=== PATIENT | male | born 1975 | race Caucasian/White ===

== ENCOUNTER 2023-08-09 22:57 | Emergency (ER) | payer OTHER, SELFPAY ==
[2023-08-09 23:00] VITALS: BP 133/74; PULSE 71; TEMP 36.7; O2SAT 98; BMI 36.4
--- NOTE | 2023-08-09 23:19 | ED.EXTPRO1 ---
HPI - Extremity Problem General Chief complaint: Extremity Problem, Nontraumatic Stated complaint: RT LEG SWELLING Time Seen by Provider: 08/09/23 23:13 Source: patient Mode of arrival: walk-in Limitations: no limitations History of Present Illness HPI Narrative: 47-year-old male presents to the emergency department for a chief complaint of a painful swollen red area on his right leg. He is worried he has a blood clot. He has never had 1. This has been there for a few days and it was not precipitated by any trauma no chest pain or shortness of breath. Related Data Home Medications ?Medication ?Instructions ?Recorded ?Confirmed omeprazole 40 mg capsule,delayed mg 08/09/23 release oxycodone-acetaminophen 5 mg-325 tab 08/09/23 mg tablet prednisone 10 mg tablet mg 08/09/23 Allergies Allergy/AdvReac Type Severity Reaction Status Date / Time No Known Drug Allergies Allergy Verified 08/09/23 23:03 Review of Systems ROS Narrative A ten point review of systems is negative except as noted above. Exam Narrative Exam Narrative: Nurses note and vital signs reviewed and patient is not hypoxic. General: The patient appears well and in no apparent distress. Patient is resting comfortably on cart. Skin: Warm, dry, no pallor noted. There is no rash noted. Head: Normocephalic, atraumatic Eye: Normal conjunctiva, no drainage Ears, Nose, Mouth, and Throat: oral mucosa is moist. Nares patent. Cardiovascular: Regular Rate and Rhythm Respiratory: Patient is in no distress, no accessory muscle use, lungs are clear to auscultation, no wheezing, rales or rhonchi Back: non-tender GI: Soft and nontender Musculoskeletal: The patient has no evidence of calf tenderness, no pitting edema, symmetrical pulses noted bilaterally. He has numerous dilated veins particularly on the left inner thigh. He has an area of mild erythema and linear induration on the right leg that is goes from just below the knee to just above the knee laterally. Neurological: Awake and alert Psychiatric: Cooperative Constitutional Vital Signs, click to edit/add: Last Vital Signs Temp 98.1 F 08/09/23 23:00 Pulse 71 08/09/23 23:00 Resp 16 08/09/23 23:00 BP 133/74 08/09/23 23:00 Pulse Ox 98 08/09/23 23:00 O2 Del Method Room Air 08/09/23 23:00 Course Vital Signs Vital signs: Vital Signs Temperature 98.1 F 08/09/23 23:00 Pulse Rate 71 08/09/23 23:00 Respiratory Rate 16 08/09/23 23:00 Blood Pressure 133/74 08/09/23 23:00 Pulse Oximetry 98 08/09/23 23:00 Oxygen Delivery Method Room Air 08/09/23 23:00 Temperature 98.1 F 08/09/23 23:00 Pulse Rate 71 08/09/23 23:00 Respiratory Rate 16 08/09/23 23:00 Blood Pressure 133/74 08/09/23 23:00 Pulse Oximetry 98 08/09/23 23:00 Oxygen Delivery Method Room Air 08/09/23 23:00 MDM - Extremity (Nontraumatic) MDM Narrative Medical decision making narrative: D-dimer is just above the upper limit of normal and I do not feel that a shot of Lovenox at this point is required. We will bring him back in a few hours in the morning for an ultrasound of his leg to rule out DVT. I suspect that this is likely superficial thrombophlebitis. Treatment diagnosis and follow-up were discussed with the patient. Differential Diagnosis Differential diagnosis: Likely other (Superficial thrombophlebitis, DVT) Lab Data Attestation: I reviewed the patient's lab results. Labs: Lab Results 08/09/23 Range/Units 23:27 D-Dimer 0.68 H* (<=0.59) mg/L FEU Discharge Plan Discharge Stand Alone Forms: Portal Instructions Chief Complaint: Extremity Problem, Nontraumatic Clinical Impression: Right leg pain Patient Disposition: Home, Self-Care Time of Disposition Decision: 23:52 Condition: Good Mode of Transportation: Private Vehicle Prescriptions / Home Meds: No Action prednisone 10 mg tablet omeprazole 40 mg capsule,delayed release(DR/EC) oxycodone-acetaminophen 5-325 mg tablet Print Language: Norwegian Instructions: Leg Pain (ED) Additional Instructions: Outpatient ultrasound in the morning at 8 AM. Bring the written prescription with you. Referrals: Miguel Hester MD [Primary Care Provider] - 1 week
[2023-08-09 23:48] LABS: D Dimer 0.68 mg/L FEU (<=0.59)
== END 2023-08-10 00:09 | disposition home or self-care (01) ==
PROVIDERS: Emergency Provider Emergency Medicine; PCP Family Medicine
DX: M79.604 Pain in right leg (principal)
CPT/HCPCS: 36415; 85378; 99283

== ENCOUNTER 2023-08-10 08:01 | Outpatient (OUT) | payer OTHER, SELFPAY ==
--- NOTE | 2023-08-10 | US_ITS ---
[address] [address] Patient Name: SELIN SOLIMAN MRN: [id number] date: 1975 Sex: M Assigned Patient Location: [facility] Current Patient Location: .[facility] Accession/Order Number: [id number] Exam Date: 08/10/2023 08:08 Report Date: 08/10/2023 09:04 At the request of: TAY ELY Procedure: US venous doppler LE RT EXAM: US venous doppler LE RT HISTORY: Right leg pain and swelling COMPARISON: None. TECHNIQUE: Grayscale, color and Doppler FINDINGS: Region: Right leg Thrombus: Extensive echogenic thrombus identified in superficial varicose veins extending from the mid thigh to the proximal calf Flow: Absent flow corresponding to thrombus Augmentation: Normal augmentation of the deep veins Compressibility: Noncompressibility corresponding to thrombus These findings discussed with Dr. Joey France by telephone 9:04 AM US/US venous doppler LE RT IMPRESSION: Extensive superficial vein thrombus in varicose veins from the mid thigh to the proximal calf No deep vein thrombus Electronically authenticated by: DANN GERBER Date: 08/10/2023 09:04
== END 2023-08-10 08:02 | disposition home or self-care (01) ==
LOC: RAD 08:01
PROVIDERS: PCP Family Medicine; Visit Provider Emergency Medicine
DX: M79.89 Other specified soft tissue disorders (principal); M79.604 Pain in right leg; I82.811 Embolism and thrombosis of superficial veins of right lower extremity
CPT/HCPCS: 93971

== ENCOUNTER 2023-08-10 08:48 | Emergency (ER) | payer OTHER, SELFPAY ==
[2023-08-10 08:51] VITALS: BP 132/76; PULSE 67; TEMP 36.7; O2SAT 97; BMI 36.0
--- NOTE | 2023-08-10 09:25 | ED.GENADUL1 ---
HPI HPI - General Adult General Chief complaint: Extremity Problem, Nontraumatic Stated complaint: LEG PAIN/ABNORMAL ULTRASOUND Time Seen by Provider: 08/10/23 08:55 Source: patient Mode of arrival: walk-in History of Present Illness HPI narrative: Patient is a 47-year-old male who is presenting to the ER today after he had an outpatient ultrasound this morning. Patient was seen in the ER last evening. Patient had a ultrasound this morning. The scrub technician called and spoke to the medical policy specialist and Dr. Hester office. Patient was recommended to come to the ER by the medical policy specialist without speaking to PCP, he was not in the office at the time. Patient has history of extensive varicose veins. Patient does have some mild redness and erythema to the lateral aspect of his right lower thigh and right upper lateral leg. Patient has no chest pain or shortness of breath. No fever or chills. No other acute complaints. Patient was told to come to the ER. Patient has no history of DVT. All systems are negative except as noted/marked. All systems reviewed and otherwise negative. Nurses note and vital signs reviewed and patient is not hypoxic. General: The patient appears well and in no apparent distress. Patient is resting comfortably on cart. Patient is not toxic, lethargic, or listless Skin: Warm, dry, no pallor noted. There is no rash noted. No petechiae, purpura. Patient has minimal erythema to the distal right lateral thigh and also the proximal right lower leg just distal to the knee, no palpable hematomas. No signs of cellulitis. The area is continuous, not circumferential. Patient has no pain to palpation to the posterior aspect of the right posterior thigh, popliteal fossa, and calf. Patient has multiple varicose veins to both legs that is longstanding and chronic. Head: Normocephalic, atraumatic Eye: Normal conjunctiva, no drainage, EOMI. PERRL Ears, Nose, Mouth, and Throat: oral mucosa is moist. Nares patent. Mouth without vesicles. Cardiovascular: Regular Rate and Rhythm, no murmur, gallop, rub Respiratory: Patient is in no distress, no accessory muscle use, lungs are clear to auscultation, no wheezing, rales or rhonchi Back: non-tender, GI: no tenderness Musculoskeletal: Patient has full range of motion of all of the extremities, no motor, sensory, or focal neurological deficits. See skin assessment. Neurological: A&O x4, normal speech Psychiatric: Cooperative Related Data Home Medications ?Medication ?Instructions ?Recorded ?Confirmed omeprazole 40 mg capsule,delayed mg 08/09/23 release oxycodone-acetaminophen 5 mg-325 tab 08/09/23 mg tablet prednisone 10 mg tablet mg 08/09/23 Previous Rx's ?Medication ?Instructions ?Recorded apixaban 5 mg (74 tabs) tablets in 5 mg PO Q12H #74 ea 08/10/23 a dose pack (Eliquis DVT-PE Treat 30D Start) naproxen 500 mg tablet (Naprosyn) 500 mg PO BID PRN pain #20 tabs 08/10/23 Allergies Allergy/AdvReac Type Severity Reaction Status Date / Time No Known Drug Allergies Allergy Verified 08/09/23 23:03 Opioid HPI Opioid Management Most Recent Opioid Data: No Data to Display Exam Constitutional Vital Signs, click to edit/add: Last Vital Signs Temp 98.1 F 08/10/23 08:51 Pulse 67 08/10/23 08:51 Resp 18 08/10/23 08:51 BP 132/76 08/10/23 08:51 Pulse Ox 97 08/10/23 08:51 Course Vital Signs Vital signs: Vital Signs Temperature 98.1 F 08/10/23 08:51 Pulse Rate 67 08/10/23 08:51 Respiratory Rate 18 08/10/23 08:51 Blood Pressure 132/76 08/10/23 08:51 Pulse Oximetry 97 08/10/23 08:51 Temperature 98.1 F 08/10/23 08:51 Pulse Rate 67 08/10/23 08:51 Respiratory Rate 18 08/10/23 08:51 Blood Pressure 132/76 08/10/23 08:51 Pulse Oximetry 97 08/10/23 08:51 Medical Decision Making MDM Narrative Medical decision making narrative: I have spoken to the radiologist Dr. Azul, and he stated the new literature suggest that with the extensive nature of the superficial varicose veins and superficial vein thrombophlebitis, it should be treated with anticoagulants similar to DVT now. I then spoke to Dr. Hester, and he is aware of the ultrasound finding. He recommended to place patient on Eliquis and Naprosyn. Patient will follow-up with Dr. Hester and also has been referred to the vein clinic as well for Discharge Plan Discharge Stand Alone Forms: Work/School Release, Portal Instructions Chief Complaint: Extremity Problem, Nontraumatic Clinical Impression: Thrombophlebitis of superficial veins of right lower extremity Patient Disposition: Home, Self-Care Time of Disposition Decision: 09:19 Condition: Fair Prescriptions / Home Meds: New Eliquis DVT-PE Treat 30D Start 5 mg (74 tabs) tablets,dose pack 5 mg PO Q12H Qty: 74 0RF Rx Instructions: please dispense generic and not the expensive starter pack if not covered by insurance naproxen [Naprosyn] 500 mg tablet 500 mg PO BID PRN (Reason: pain) Qty: 20 0RF No Action prednisone 10 mg tablet omeprazole 40 mg capsule,delayed release(DR/EC) oxycodone-acetaminophen 5-325 mg tablet Print Language: [place] Instructions: Superficial Thrombophlebitis (ED), Phlebitis (ED), Vein Stripping (DC) Additional Instructions: Start taking Eliquis. Start using daily anti-inflammatories as prescribed as well to help with pain and inflammation. Follow-up with PCP, also follow-up with the [facility] vein [facility] body clinic for further treatment You have been given information about the [facility] vein and body clinic as well. Call to make an outpatient appointment Referrals: Miguel Hester MD [Primary Care Provider] - 1 week
== END 2023-08-10 09:47 | disposition home or self-care (01) ==
PROVIDERS: Emergency Provider Emergency Medicine; PCP Family Medicine
DX: I82.811 Embolism and thrombosis of superficial veins of right lower extremity (principal); M79.604 Pain in right leg; L53.9 Erythematous condition, unspecified
CPT/HCPCS: 93971; 99283

== ENCOUNTER 2024-06-19 15:43 | Outpatient (OUT) | payer OTHER, SELFPAY ==
[2024-06-19 15:54] LABS: Basophils Percent Auto 0.4 % (0.2-2.0); Eosinophils Absolute Auto 0.1 10^3/uL (0.0-0.7); Hematocrit 43.1 % (42.0-54.0); Hemoglobin 14.4 g/dL (14.0-18.0); Immature Granulocytes Abs Auto 0.02 10^3/uL (0.00-0.03); Immature Granulocytes Pct Auto 0.3 % (0.0-0.5); Lymphocytes Absolute Auto 1.9 10^3/uL (1.2-3.8); Mean Corpuscular HGB Conc 33.4 g/dL (29.9-35.2); Mean Corpuscular Hemoglobin 29.6 pg (25.9-34.0); Mean Corpuscular Volume 88.7 fL (80.0-94.0); Mean Platelet Volume 8.9 fL (9.5-13.5); Monocytes Absolute Auto 0.7 10^3/uL (0.3-0.8); Neutrophils Absolute Auto 4.2 10^3/uL (1.4-6.5); Neutrophils Percent Auto 60.3 % (43.0-75.0); Platelet Count 264 10^3/uL (150-450); Red Blood Count 4.86 10^6/uL (4.70-6.10); Red Cell Distribution Width 13.2 % (11.0-15.0)
[2024-06-19 16:17] LABS: Estimated Average Glucose 128 mg/dL; Glycohemoglobin A1C 6.1 % (4.5-6.2)
[2024-06-19 16:27] LABS: Alanine Aminotransferase 48 U/L (16-63); Albumin Globulin Ratio 1.1; Albumin Level 3.7 g/dL (3.4-5.0); Alkaline Phosphatase 64 U/L (46-116); Anion Gap 7.9; Aspartate Amino Transferase 20 U/L (15-37); BUN Creatinine Ratio 15.4; Bilirubin Direct 0.1 mg/dL (0.0-0.2); Bilirubin Total 0.3 mg/dL (0.2-1.0); Calcium 9.3 mg/dL (8.5-10.1); Carbon Dioxide 32.1 mmol/L (21.0-32.0); Chloride 101 mmol/L (98-107); Chol HDL Ratio 6.5; Cholesterol 215 mg/dL (<=200); Estimated GFR (African America >60 (>=60 mL/min/1.73m^2); Estimated GFR (Non-African Ame >60 (>=60 mL/min/1.73m^2); Globulin 3.4 g/dL; Glucose 109 mg/dL (74-106); HDL Cholesterol 33 mg/dL (40-60); Sodium 137 mmol/L (136-145); Total Protein 7.1 g/dL (6.4-8.2); Triglycerides 302 mg/dL (<=150); VLDL CHOLESTEROL 60.4 mg/dL
[2024-06-19 17:50] LABS: Prostate Specific Antigen Scrn 0.45 ng/mL (<=4.00)
== END 2024-06-19 15:44 | disposition home or self-care (01) ==
LOC: LAB 15:44
PROVIDERS: PCP Family Medicine; Visit Provider Family Medicine
DX: Z00.00 Encounter for general adult medical examination without abnormal findings (principal)
CPT/HCPCS: 36415; 80048; 80061; 80076; 83036; 84443; 85025; G0103

== ENCOUNTER 2024-11-14 17:48 | Emergency (ER) | payer OTHER, SELFPAY ==
[2024-11-14] VITALS (9 sets, daily range): BP systolic 123–135; BP diastolic 67–84; PULSE 83–96; TEMP 36.9; O2SAT 94–96; BMI 39.1
--- NOTE | 2024-11-14 18:04 | ECG_ITS ---
The [facility] Test Date: 2024-11-14 Pat Name: SELIN SOLIMAN Department: Room: - Gender: Male [employer] Machine Operator: : 1975 Requested By: [id number] Order Number: [id number] Reading MD: TASNEEM ACOSTA M.D. Measurements Intervals [place] Rate: 92 P: 51 WA: 160 QRS: 12 QRSD: 82 T: 44 QT: 364 QTc: 413 Interpretive Statements 1100 Sinus rhythm 9110 normal ECG Compared to ECG 03/08/2018 05:44:35 No significant changes Electronically Signed On 11-14-2024 18:49:04 EDT by TASNEEM ACOSTA M.D.
--- NOTE | 2024-11-14 18:04 | CT_ITS ---
The [address] [address] Patient Name: SELIN SOLIMAN MRN: [id number] date: 1975 Sex: M Assigned Patient Location: ED.MAIN Current Patient Location: ED.MAIN Accession/Order Number: [id number] Exam Date: 11/14/2024 18:26 Report Date: 11/14/2024 18:58 At the request of: ZAINAB HOLCOMB MD Procedure: CT abdomen pelvis wo con CT Abdomen and Pelvis withoutcontrast TECHNIQUE: Axial imaging with 2-D reconstruction. The CT exam was performed using one or more the following dose reduction techniques: Automated exposure control, adjustment of the MA and/or Kv according to patient size, or use of the iterative reconstruction technique. COMPARISON: None History: Back pain with radiation into the abdomen LIMITATIONS: None LOWER THORAX Unremarkable LIVER: Fatty hepatomegaly. 2.9 cm left hepatic lesion. GALLBLADDER: No gallbladder abnormality identified. BILE DUCTS: No dilatation SPLEEN: Unremarkable PANCREAS: Unremarkable ADRENAL GLANDS: Unremarkable KIDNEYS:Unremarkable AORTA: No abdominal aortic aneurysm identified. RETROPERITONEUM: No significant retroperitoneal abnormalities identified. MESENTERY:Unremarkable STOMACH:Unremarkable SMALL BOWEL: The small bowel loops are nondistended. APPENDIX: The appendix is normal. COLON: Unremarkable URINARY BLADDER: Urinary bladder is unremarkable. REPRODUCTIVE SYSTEM: Reproductive structures are unremarkable. PNEUMOPERITONEUM: None PERITONEAL FLUID:None BONY STRUCTURES: Unremarkable ABDOMINAL WALL: Unremarkable CT/CT abdomen pelvis wo con IMPRESSION: No acute inflammatory changes. Fatty hepatomegaly. 2.8 cm left hepatic lesion. May be further assessed with liver MRI with and without contrast Impression dictated by: Osman Gillis M.D. 11/14/2024 6:58 PM Dictation Location: [facility] Real-Time Electronically authenticated by: [id number] Y Date: 11/14/2024 18:58
--- OUTSIDE RECORDS SUMMARY | 2024-11-14 18:10 | XMS_ITS | CCD ---
Author Organization [facility] Care Team Providers Care Tube Worker Name Role Phone Petr Chung Unavailable Unavailable DR MIGUEL MAURER Admitting Unavailable DR MIGUEL MAURER Attending Unavailable ERASTO, DR MIGUEL Tubbs Primary Care Unavailable DR MIGUEL MAURER Consulting Unavailable Miguel Maurer MD Primary Care Provider Miguel Maurer MD Primary Care Provider Miguel Maurer MD Unavailable Hamlet Cyr Jr Attending Unavailable Hamlet Cyr Jr Admitting Unavailable Miguel Maurer Primary Care Unavailable MIGUEL MAURER Attending Unavailable MIGUEL MAURER Attending Unavailable Medications Current Medications Medication Drug Class(es) Dates Sig (Normalized) Sig (Original) acetaminophen 325 mg / oxyCODONE hydrochloride 5 mg oral tablet (20 sources) Opioid Agonist Start: 11-12-2023 End: 10-29-2024 take 1 tablet by mouth four times daily as needed for pain oxyCODONE-acetaminophe n (Percocet) 5-325 MG tablet Indications: Spondylolisthesis of lumbar region Take 1 tablet by mouth 4 (four) times a day as needed for moderate pain or severe pain 120 tablet 09/29/2024 10/29/2024 Active Start: 09-05-2023 End: 11-10-2023 take 1 tablet by mouth four times daily as needed for pain oxyCODONE-acetaminophen (Percocet) 5-325 MG tablet Indications: Spondylolisthesis of lumbar region Take 1 tablet by mouth 4 (four) times a day as needed for moderate pain or severe pain 120 tablet 10/08/2023 11/10/2023 Discontinued (Reorder) Start: 02-21-2023 End: 03-26-2023 take 1 tablet by mouth four times daily as needed for pain oxyCODONE-acetaminophen (Percocet) 5-325 MG tablet Indications: Spondylolisthesis of lumbar region Take 1 tablet by mouth 4 (four) times a day as needed for moderate pain or severe pain 120 tablet 0 03/26/2023 Active 12 hr buPROPion hydrochloride 150 mg extended release oral tablet (9 sources) Aminoketone Start: 06-16-2024 End: 07-08-2024 take 1 tablet by mouth every twelve hours at bedtime buPROPion SR (Wellbutrin SR) 150 MG 12 hr tablet Indications: Smoker TAKE 1 TABLET BY MOUTH IN THE MORNING AND BEFORE BEDTIME, DO NOT CRUSH, CHEW, OR SPLIT 180 tablet 3 07/08/2024 Active 24 hr nicotine 0.875 mg/hr transdermal system (8 sources) Cholinergic Nicotinic Agonist Start: 06-16-2024 nicotine (Nicoderm, Step 1) 21 MG/24HR patch Indications: Smoker Place 1 patch over 24 hours on the skin 1 (one) time each day at the same time 30 patch 1 06/16/2024 Active omeprazole 40 mg delayed release oral capsule (20 sources) Proton Pump Inhibitor Start: 11-15-2023 End: 05-14-2024 take 1 capsule by mouth before mealtime omeprazole (PriLOSEC) [address] capsule Indications: Gastroesophageal reflux disease without esophagitis TAKE 1 CAPSULE BY MOUTH IN THE MORNING BEFORE MEALS, DO NOT CRUSH OR CHEW 90 capsule 1 05/14/2024 Active Start: 06-18-2023 take 1 capsule by mo uth before mealtime omeprazole (PriLOSEC) [address] capsule Indications: Gastroesophageal reflux disease without esophagitis Take 1 capsule (40 mg) by mouth in the morning. Take before meals. Do not crush or chew.. 30 capsule 5 06/18/2023 Active predniSONE 10 mg oral tablet (6 sources) Start: 07-30-2023 End: 12-17-2023 take 6 tablets by mouth once daily, then take 4 tablets by mouth once daily, then take 2 tablets by mouth once daily, then take 1 tablet by mouth once daily predniSONE (Deltasone) 10 MG tablet Indications: Spondylolisthesis of lumbar region 6 PO daily x 3 days, 4 PO daily x 3 days, 2 PO daily x 3 days, 1 PO daily x 3 days 39 tablet 07/30/2023 12/17/2023 Discontinued sildenafil 100 mg oral tablet (20 sources) Phosphodiesterase 5 Inhibitor Start: 08-07-2024 sildenafil (Viagra) 100 MG tablet Indications: Vasculogenic erectile dysfunction, unspecified vasculogenic erectile dysfunction type TAKE ONE TABLET BY MOUTH NEEDED 30 MINUTES PRIOR TO ANTICIPATED ACTIVITY 9 tablet 5 08/07/2024 Active Start: 06-05-2024 sildenafil (Vi agra) 100 MG tablet Indications: Vasculogenic erectile dysfunction, unspecified vasculogenic erectile dysfunction type TAKE ONE TABLET BY MOUTH NEEDED 30 MINUTES PRIOR TO ANTICIPATED ACTIVITY 9 tablet 5 06/05/2024 Active Start: 03-31-2024 sildenafil (Vi agra) 100 MG tablet Indications: Vasculogenic erectile dysfunction, unspecified vasculogenic erectile dysfunction type TAKE ONE TABLET BY MOUTH NEEDED 30 MINUTES PRIOR TO ANTICIPATED ACTIVITY 9 tablet 5 03/31/2024 Active Start: 01-14-2024 sildenafil (Vi agra) 100 MG tablet Indications: Vasculogenic erectile dysfunction, unspecified vasculogenic erectile dysfunction type TAKE ONE TABLET BY MOUTH NEEDED 30 MINUTES PRIOR TO ANTICIPATED ACTIVITY 9 tablet 5 01/14/2024 Active Start: 09-04-2023 End: 11-12-2023 sildenafil (Viagra) 100 MG t ablet Indications: Vasculogenic erectile dysfunction, unspecified vasculogenic erectile dysfunction type TAKE ONE TABLET BY MOUTH NEEDED 30 MINUTES PRIOR TO ANTICIPATED ACTIVITY 9 tablet 5 11/12/2023 Active Start: 02-15-2023 sildenafil (Vi agra) 100 MG tablet Indications: Vasculogenic erectile dysfunction, unspecified vasculogenic erectile dysfunction type TAKE ONE TABLET BY MOUTH NEEDED 30 MINUTES PRIOR TO ANTICIPATED ACTIVITY 9 tablet 5 02/15/2023 Active Problems Active Problems Problem Classification Problem Date Documented Date Episodic/Chronic Disorders of lipid metabolism (5 sources) Dyslipidemia; Translations: [Hyperlipidemia, unspecified] Onset: 06-23-2024 06-23-2024 Chronic Esophageal disorders (20 sources) Gastroesophageal reflux disease without esophagitis; Translations: [Gastro-esophageal reflux disease without esophagitis] Onset: 06-18-2023 06-18-2023 Chronic Other acquired deformities (20 sources) Lumbar spondylolisthesis; Translations: [Spondylolisthesis, lumbar region] Onset: 06-18-2023 03-26-2023 Episodic Other male genital disorders (20 sources) Secondary erectile dysfunction; Translations: [Male erectile dysfunction, unspecified] Onset: 06-18-2023 06-18-2023 Chronic Other male genital disorders (1 source) Vasculopathic erectile dysfunction; Translations: [Male erectile dysfunction, unspecified] 11-10-2023 Chronic Other nutritional; endocrine; and metabolic disorders (20 sources) Severe obesity; Translations: [Class 2 severe obesity due to excess calories with serious comorbidity and body mass index (BMI) of 39.0 to 39.9 in adult ([facility])] Onset: 12-17-2023 12-17-2023 Chronic Other screening for suspected conditions (not mental disorders or infectious disease) (2 sources) Patient encounter status; Translations: [Encounter for screening for malignant neoplasm of colon] 06-16-2024 Episodic Substance-related disorders (11 sources) Smoker; Translations: [Nicotine dependence, unspecified, uncomplicated] Onset: 06-16-2024 06-16-2024 Chronic Unclassified (2 sources) CONTACT W/AND (SUSP) EXPOS COVID-19; Translations: [CONTACT W/AND (SUSP) EXPOS COVID-19] Onset: 01-19-2021 Viral infection (1 source) COVID-19; Translations: [COVID-19] Onset: 01-19-2021 Past or Other Problems Problem Classification Problem Date Documented Da te Episodic/Chronic Diabetes mellitus without complication (5 sources) Prediabetes; Translations: [Prediabetes] Onset: 5 06-23-2024 Episodic Phlebitis; thrombophlebitis and thromboembolism (20 sources) Thrombophlebitis of superficial vein of right lower limb; Translations: [Phlebitis and thrombophlebitis of superficial vessels of right lower extremity] Onset: 4 06-18-2023 Episodic Spondylosis; intervertebral disc disorders; other back problems (20 sources) Lumbar disc prolapse with radiculopathy; Translations: [Intervertebral disc disorders with radiculopathy, lumbar region] Onset: 4 06-18-2023 Episodic Unclassified (1 source) CONTACT W/AND (SUSP) EXPOS COVID-19; Translations: [CONTACT W/AND (SUSP) EXPOS COVID-19] Onset: Varicose veins of lower extremity (20 sources) Varicose veins of lower extremity; Translations: [Varicose veins of bilateral lower extremities with pain] Onset: 4 06-18-2023 Episodic Results Test Name Value Interpretation Reference Range Facility ALL CBC WITH AUTO DIFFon BASOPHILS ABSOLUTE AUTO 0 [facility] Basophils/100 WBC (Bld) 0.4 % 0.2 - 2.0 % [facility] Eosinophils/100 WBC (Bld) 2 % 0.9 - 7.0 % [facility] Erythrocyte distribution width (RBC) [Ratio] 13.2 % 11.0 - 15.0 % [facility] Hematocrit (Bld) [Volume fraction] 43.1 % 42.0 - 54.0 % [facility] Hemoglobin (Bld) [Mass/Vol] 14.4 g/dL 14.0 - 18.0 g/dL [facility] IMMATURE GRANULOCYTES ABS AUTO 0.02 [facility] Immature granulocytes/100 WBC (Bld) 0.3 % 0.0 - 0.5 % [facility] Interpretation and review of laboratory results Abnormal [facility] LYMPHOCYTES ABSOLUTE AUTO 1.9 [facility] Lymphocytes/100 WBC (Bld) 27 % 20.5 - 60.0 % [facility] MCH (RBC) [Entitic mass] 29.6 pg 25.9 - 34.0 pg [facility] MCHC (RBC) [Mass/Vol] 33.4 g/dL 29.9 - 35.2 g/dL [facility] MCV (RBC) [Entitic vol] 88.7 fL 80.0 - 94.0 fL [facility] MONOCYTES ABSOLUTE AUTO 0.7 [facility] Monocytes/100 WBC (Bld) 10 % 1.7 - 12.0 % [facility] NEUTROPHILS ABSOLUTE AUTO 4.2 [facility] Neutrophils/100 WBC (Bld) 60.3 % 43.0 - 75.0 % [facility] Platelet mean volume (Bld) [Entitic vol] 8.9 fL Low 9.5 - 13.5 fL [facility] TBH EO # 0.1 [facility] TBH PLT 264 [facility] TB[facility] RBC 4.86 [facility] TB WBC 7 [facility] MLR HEMOGLOBIN A1Con 025 Glucose [Mass/Vol] 128 mg[facility] HbA1c (Bld) [Mass fraction] 6.1 % 4.5 - 6.2 % [facility] Comment on above: ADA RECOMMENDED LIMI T 4.0 - 6.0 ADA THERAPEUTIC TARGET < 7.0 ACTION SUGGESTED > 7.0 [facility] Covid-19 PCR (CVDTB)on SARS-CoV-2 (COVID-19) RNA ROSALIND+probe Ql (Unsp spec) Detected Critically abnormal NOT DETECTED [facility] Comment on above: Result Comment: This test is not yet approved or cleared by the [place] FDA. When there are no FDA-approved or cleared tests available, and other criteria are met, FDA can make tests available under an emergency access mechanism called an Emergency Use Authorization (EUA). The EUA for this test is supported by the Insurance Healthcare Consultant of Health and Human Service's (HHS's) declaration that circumstances exist to justify the emergency use of in vitro diagnostics for the detection and/or diagnosis of the virus that causes COVID-19. This EUA will remain in effect (meaning this test can be used) for the duration of the COVID-19 declaration justifying emergency of IVDs, unless it is terminated or revoked by FDA (after which the test may no longer be used). Performed By: #### [facility] #### [facility] [address] [place] [address] Dr. Lloyd López Vital Signs Date Time Vital Sign Value Performing Clinician Sascha bentley 06-16-2024 14:27040 Body height 172.7 cm Miguel Maurer MD Work Phone: [facility] 06-16-2024 14:27-0400 Body mass index (BMI) [Ratio] 41.05 kg/m2 Miguel Maurer MD Work Phone: [facility] 06-16-2024 14:27-040 Body temperature 97.81 [degF] Miguel Maurer MD Work Phone: [facility] 06-16-2024 14:27-0400 Body weight 122.47 kg Miguel Maurer MD Work Phone: [facility] 06-16-2024 14:27-0400 Diastolic blood pressure 78 mm[Hg] Miguel Maurer MD Work Phone: [facility] 06-16-2024 14:27-0400 Heart rate 79 /min Miguel Maurer MD Work Phone: [facility] 06-16-2024 14:27-0400 Respiratory rate 18 /min Miguel Maurer MD Work Phone: [facility] 06-16-2024 14:27-0400 SaO2% (BldA) [Mass fraction] 94 % Miguel Maurer MD Work Phone: [facility] 06-16-2024 14:27-0400 Systolic blood pressure 124 mm[Hg] Miguel Maurer MD Work Phone: [facility] 12-17-2023 13:14-0500 Body height 172.7 cm Miguel Maurer MD Work Phone: [facility] 12-17-2023 13:14-0500 Body mass index (BMI) [Ratio] 39.23 kg/m2 Miguel Maurer MD Work Phone: [facility] 12-17-2023 13:14-0500 Body temperature 97.5 [degF] Miguel Maurer MD Work Phone: [facility] 12-17-2023 13:14-0500 Body weight 117.03 kg Miguel Maurer MD Work Phone: [facility] 12-17-2023 13:14-0500 Diastolic blood pressure 64 mm[Hg] Miguel Maurer MD Work Phone: [facility] 12-17-2023 13:14-0500 Heart rate 71 /min Miguel Maurer MD Work Phone: [facility] 12-17-2023 13:14-0500 Respiratory rate 18 /min Miguel Maurer MD Work Phone: [facility] 12-17-2023 13:14-0500 SaO2% (BldA) [Mass fraction] 95 % Miguel Maurer MD Work Phone: [facility] 12-17-2023 13:14-0500 Systolic blood pressure 126 mm[Hg] Miguel Maurer MD Work Phone: [facility] Healthcare Encounters Encounter Date Encounter Type Care Provider Facility Start: 09-29-2024 End: 09-29-2024 Refill Miguel Maurer MD Work Phone: [facility] Comment on above: Spondylolisthesis of lumbar region Start: 08-28-2024 End: 08-28-2024 Refill Miguel Maurer MD Work Phone: [facility] Comment on above: Spondylolisthesis of lumbar region Start: 07-29-2024 End: 07-29-2024 Refill Miguel Maurer MD Work Phone: [facility] Comment on above: Spondylolisthesis of lumbar region Start: 07-08-2024 End: 07-08-2024 Refill Miguel Maurer MD Work Phone: [facility] Comment on above: Smoker Start: 06-26-2024 End: 06-26-2024 Refill Miguel Maurer MD Work Phone: [facility] Comment on above: Spondylolisthesis of lumbar region Start: 06-19-2024 End: 06-19-2024 [facility] Result Encounter Miguel Maurer MD Work Phone: [facility] External Department Unsolicited Start: 06-19-2024 End: 06-19-2024 [facility] Result Encounter Miguel Maurer MD Work Phone: [facility] External Department Unsolicited Start: 06-16-2024 End: 06-16-2024 Periodic preventive med est patient 40-64yrs Miguel Maurer MD Work Phone: [facility] Comment on above: Annual physical exam (Primary Dx); Colon cancer screening; Smoker; Thrombophlebitis of superficial veins of right lower extremity; Varicose veins of both lower extremities with pain; Class 3 severe obesity due to excess calories with serious comorbidity and body mass index (BMI) of 40.0 to 44.9 in adult; Gastro-esophageal reflux disease without esophagitis Start: 06-16-2024 End: 06-16-2024 ambulatory MIGUEL MAURER Not Available Start: 06-16-2024 End: 06-16-2024 Bamboo flowsheet Miguel Maurer MD Work Phone: [facility] Start: 06-16-2024 End: 06-16-2024 Bamboo flowsheet Miguel Maurer MD Work Phone: [facility] Start: 06-16-2024 End: 06-16-2024 Patient encounter procedure Miguel Maurer MD Work Phone: [facility] Start: 05-14-2024 End: 05-27-2024 Refill Miguel Maurer MD Work Phone: [facility] Comment on above: Gastroesophageal ref lux disease without esophagitis; Spondylolisthesis of lumbar region Start: 04-21-2024 End: 04-21-2024 Refill Miguel Maurer MD Work Phone: [facility] Comment on above: Spondylolisthesis of lumbar region Start: 03-19-2024 End: 03-19-2024 Refill Miguel Maurer MD Work Phone: [facility] Comment on above: Spondylolisthesis of lumbar region Start: 02-18-2024 End: 02-18-2024 Refill Miguel Maurer MD Work Phone: [facility] Comment on above: Spondylolisthesis of lumbar region Start: 01-18-2024 End: 01-18-2024 ambulatory Hamlet Cyr Jr Facility:[facility] Start: 01-16-2024 End: 01-16-2024 Refill Miguel Maurer MD Work Phone: [facility] Comment on above: Spondylolisthesis of lumbar region Start: 12-17-2023 End: 12-17-2023 Bamboo flowsheet Miguel Maurer MD Work Phone: [facility] Start: 12-17-2023 End: 12-17-2023 Bamboo flowsheet Miguel Maurer MD Work Phone: [facility] Start: 12-17-2023 End: 12-17-2023 ambulatory MIGUEL MAURER Not Available Start: 12-17-2023 End: 12-17-2023 Office outpatient visit 25 minutes Miguel Maurer MD Work Phone: [facility] Comment on above: Spondylolisthesis of lumbar region (Primary Dx); Gastroesophageal reflux disease without esophagitis; Thrombophlebitis of superficial veins of right lower extremity; Varicose veins of both lower extremities with pain; Class 2 severe obesity due to excess calories with serious comorbidity and body mass index (BMI) of 39.0 to 39.9 in adult ([facility]) Start: 11-12-2023 End: 11-12-2023 Refill Miguel Maurer MD Work Phone: [facility] Comment on above: Spondylolisthesis of lumbar region Start: 11-09-2023 End: 11-12-2023 Refill Miguel Maurer MD Work Phone: [facility] Comment on above: Vasculogenic erectil e dysfunction, unspecified vasculogenic erectile dysfunction type; Spondylolisthesis of lumbar region Start: 10-08-2023 End: 10-08-2023 Refill Marjan Tracy [facility] Comment on above: Spondylolisthesis of lumbar region Start: 03-26-2023 Refill Miguel Cruz Work Phone: [facility] Comment on above: Spondylolisthesis of lumbar region Start: 01-14-2021 End: 01-14-[address] MIGUEL MAURER Facility:[facility] Start: 02-28-2017 End: 03-01-2017 Ambulatory Petr Beatadarby Facility:[id number] Procedures Date Procedure Procedure Detail Performing Clinician Start: 06-19-2024 ALL CBC WITH AUTO DIFF Miguel Maurer MD Work Phone: Start: 06-19-2024 MLR HEMOGLOBIN A1C Miguel Maurer MD Work Phone: Plan of Treatment Date Care Activity Detail Author Start: 05-23-2026 Screening for malign ant neoplasm of colon FIT-DNA [facility] Start: 12-17-2024 End: 12-17-2024 Patient encounter procedure 12/17/2024 1:00 PM EST Office Visit [facility] [address] [place] [address] Miguel Maurer MD [address] [place] [address] [facility] Start: 10-13-2024 Influenza vaccination [facility] Start: 06-16-2024 End: 06-16-2024 Patient encounter procedure [facility] Comment on above: Arrived Start: 06-16-2024 End: 06-16-2025 Basic metabolic 1998 panel - Serum or Plasma Basic metabolic panel Lab Routine Annual physical exam Expected: 06/16/2024 (Approximate), Expires: 06/16/2025 [facility] Comment on above: Expected: 06/16/2024 (Approximate), Expires: 06/16/2025 Start: 06-16-2024 End: 06-16-2025 CBC W Auto Differential panel - Blood CBC and differential Lab Routine Annual physical exam Expected: 06/16/2024 (Approximate), Expires: 06/16/2025 [facility] Comment on above: Expected: 06/16/2024 (Approximate), Expires: 06/16/2025 Start: 06-16-2024 End: 06-16-2025 Hemoglobin A1c/Hemoglobin.total in Blood Hemoglobin A1c Lab Routine Annual physical exam Expected: 06/16/2024 (Approximate), Expires: 06/16/2025 [facility] Work Phone: Comment on above: Expected: 06/16/2024 (Approximate), Expires: 06/16/2025 Start: 06-16-2024 End: 06-16-2025 Hepatic function 2000 panel - Serum or Plasma Hepatic function panel Lab Routine Annual physical exam Expected: 06/16/2024 (Approximate), Expires: 06/16/2025 [facility] Comment on above: Expected: 06/16/2024 (Approximate), Expires: 06/16/2025 Start: 06-16-2024 End: 06-16-2025 Lipid 1996 panel - Serum or Plasma Lipid panel Lab Routine Annual physical exam Expected: 06/16/2024 (Approximate), Expires: 06/16/2025 [facility] Comment on above: Expected: 06/16/2024 (Approximate), Expires: 06/16/2025 Start: 06-16-2024 End: 06-16-2025 Noninvasive colorectal cancer DNA and occult blood screening [Presence] in Stool Cologuard colon cancer screening Lab Routine Colon cancer screening Expected: 06/16/2024 (Approximate), Expires: 06/16/2025 [facility] Comment on above: Expected: 06/16/2024 (Approximate), Expires: 06/16/2025 Start: 06-16-2024 End: 06-16-2025 Prostate specific Ag [Mass/volume] in Serum or Plasma PSA Lab Routine Annual physical exam Expected: 06/16/2024 (Approximate), Expires: 06/16/2025 [facility] Comment on above: Expected: 06/16/2024 (Approximate), Expires: 06/16/2025 Start: 06-16-2024 End: 06-16-2025 Thyrotropin [Units/volume] in Serum or Plasma TSH Lab Routine Annual physical exam Expected: 06/16/2024 (Approximate), Expires: 06/16/2025 [facility] Comment on above: Expected: 06/16/2024 (Approximate), Expires: 06/16/2025 Start: 05-19-2024 Screening for malign ant neoplasm of colon [facility] Start: 12-17-2023 End: 12-17-2023 Patient encounter procedure 12/17/2023 1:00 PM EST Office Visit [facility] [address] [place] [phone] Miguel Maurer MD [address] [place] [phone] [facility] Start: 2023 Influenza vaccination Influenza Vacc ine (#1) [facility] Start: 06-18-2023 End: 06-18-2023 Patient encounter procedure 06/18/2023 1:15 PM EDT Office Visit [facility] [address] [place] [address] Miguel Maurer MD [address] [place] [id number] [facility] Start: 10-13-2022 Influenza vaccination Influenza Vacc ine (#1) [facility] Start: 1974 Screening for malign ant neoplasm of colon [facility] Payers Date Payer Category Payer Self-pay 2022 Private Health Insurance [employer] [id number] 2022 Unknown [employer] [id number] 2022-Present [address] [place] [address] [id number] 1974 Unknown [id number] 1974 Unknown [id number] 1974 Unknown [id number] 1959 Unknown [id number] Unknown [id number] Social History Date Type Detail Facility Tobacco smoking stat [facility] Tobacco smoking consumption unknown [facility] Start: 1975 Sex Assigned At Not on file [facility] Start: 06-18-2023 End: 06-16-2024 Gender identity Not on file [facility] Start: 06-18-2023 Tobacco smoking stat [facility] Never smoked tobacco [facility] Start: 06-18-2023 End: 06-16-2024 Tobacco use and exposure Smokeless tobacco non-user [facility] Start: 06-18-2023 End: 06-16-2024 History of Social function [facility] Start: 06-16-2024 Tobacco smoking stat [facility] Smokes tobacco daily [facility] History of tobacco use Cigarette Smoker [facility] Clinical Notes 12-17-2023 to 06-16-2024 Miguel Maurer MD - 06/16/2024 3:37 PM Shamika Maurer MD - 06/16/2024 3:07 PM Shamika Maurer MD - 06/16/2024 3:06 PM Shamika Maurer MD - 06/16/2024 3:06 PM EDT Note Date & Type Note Facility 06-16-2024 History of Presen t illness Narrative Associated Problem(s): Class 3 severe obesity due to excess calories with serious comorbidity and body mass index (BMI) of 40.0 to 44.9 in adult Weight loss indicated Associated Problem(s): Annual physical exam Due for labs. Discussed proper diet and regular aerobic exercise. Need aerobic exercise 5-6 days a week for 30 minutes at a time. Smaller portions and limit total calories. Never had colon cancer screening and willing to have cologuard. Tetanus every 10 years. Advised not to smoke. Associated Problem(s): Smoker Smokes 2 PPD for about 30 years. Start wellbutrin and patches. Will order LDCT chest after turning 49. Associated Problem(s): Thrombophlebitis of superficial veins of right lower extremity Recent pain and swelling along with history of painful varicose veins. Refer to vascular. Associated Problem(s): Varicose veins of both lower extremities with pain Recent pain and swelling along with history of painful varicose veins. Refer to vascular. Images from the original note were not included. Subjective Patient ID: Bertin Obando is a 48 y.o. male who presents for Follow-up (6m). Presents for annual PE. Weight up 12 pounds since last visit. Not active and no exercise. Tries to watch diet and eat healthy. Increased fruits and vegetables. Smaller portions and limits snacking. Tries to limit total daily calories. Due for labs. Smokes 2 PPD and has smoked for 30 years. Interested in quitting. Back pain stable. Continues to have pain in low back and across top hips. Pain radiates into left gluteal region and down left leg. C/o weakness in leg and hard to lift leg. Occasional weakness in leg and at times will give out when pain severe. Pain worse with walking and standing. At times hard to stay active and complete ADLs. Using percocet and mild relief. To ER end of July with superficial thrombophlebitis. History of bulging varicose veins and occasional pain. ER recommended see vascular and never heard about referral. Review of Systems Constitutional: Negative for fatigue. Respiratory: Negative for cough, shortness of breath and wheezing. Cardiovascular: Negative for chest pain and palpitations. Gastrointestinal: Negative for abdominal pain, diarrhea, nausea and vomiting. Genitourinary: Negative for dysuria. Objective Physical Exam Constitutional: General: He is not in acute distress. Appearance: Normal appearance. HENT: Head: Normocephalic. Right Ear: Tympanic membrane and ear canal normal. Left Ear: Tympanic membrane and ear canal normal. Eyes: Extraocular Movements: Extraocular movements intact. Pupils: Pupils are equal, round, and reactive to light. Cardiovascular: Rate and Rhythm: Normal rate and regular rhythm. Heart sounds: No murmur heard. No friction rub. No gallop. Pulmonary: Breath sounds: Normal breath sounds. No wheezing, rhonchi or rales. Abdominal: General: Bowel sounds are normal. There is no distension. Palpations: Abdomen is soft. Tenderness: There is no abdominal tenderness. There is no guarding or rebound. Musculoskeletal: General: Normal range of motion. Left lower leg: No edema. Neurological: General: No focal deficit present. Mental Status: He is alert. Cranial Nerves: No cranial nerve deficit. Deep Tendon Reflexes: Reflexes normal. Assessment/Plan Problem List Items Addressed This Visit Thrombophlebitis of superficial veins of right lower extremity Recent pain and swelling along with history of painful varicose veins. Refer to vascular. Relevant Orders Ambulatory referral to Vascular Surgery Varicose veins of both lower extremities with pain Recent pain and swelling along with history of painful varicose veins. Refer to vascular. Relevant Orders Ambulatory referral to Vascular Surgery Annual physical exam - Primary Due for labs. Discussed proper diet and regular aerobic exercise. Need aerobic exercise 5-6 days a week for 30 minutes at a time. Smaller portions and limit total calories. Never had colon cancer screening and willing to have cologuard. Tetanus every 10 years. Advised not to smoke. Relevant Orders Hemoglobin A1c Basic metabolic panel CBC and differential Hepatic function panel Lipid panel PSA TSH Smoker Smokes 2 PPD for about 30 years. Start wellbutrin and patches. Will order LDCT chest after turning 49. Relevant Medications buPROPion SR (Wellbutrin SR) 150 MG 12 hr tablet nicotine (Nicoderm, Step 1) 21 MG/24HR patch Other Visit Diagnoses Colon cancer screening Relevant Orders Cologuard colon cancer screening documented in this encounter [facility] 05-27-2024 Telephone encount er Note [facility] 05-27-2024 Miscellaneous Notes Formattin g of this note might be different from the original. MEDICATION SENT TO [facility] documented in this encounter [facility] 05-14-2024 Telephone encount er Note MEDICATION SENT TO [facility] 12-17-2023 History of Presen t illness Narrative Associated Problem(s): Class 2 severe obesity due to excess calories with serious comorbidity and body mass index (BMI) of 39.0 to 39.9 in adult ([facility] Weight loss indicated Associated Problem(s): Varicose veins of both lower extremities with pain Recent pain and swelling along with history of painful varicose veins. Refer to vascular. Associated Problem(s): Thrombophlebitis of superficial veins of right lower extremity Recent pain and swelling along with history of painful varicose veins. Refer to vascular. Associated Problem(s): Spondylolisthesis of lumbar region Pain unchanged and continue percocet PRN. Increase activity and walk regularly. Associated Problem(s): Gastroesophageal reflux disease without esophagitis Symptoms controlled with omeprazole and continue. Images from the original note were not included. Subjective Patient ID: Bertin Obando is a 48 y.o. male who presents for Follow-up (6 m). Follow up back pain. Back pain stable. Continues to have pain in low back and across top hips. Pain radiates into left gluteal region and down left leg. C/o weakness in leg and hard to lift leg. Occasional weakness in leg and at times will give out when pain severe. Pain worse with walking and standing. At times hard to stay active and complete ADLs. Using percocet and mild relief. GERD controlled with omeprazole. Denies epigastric pain or burning and not waking up with symptoms. To ER end of July with superficial thrombophlebitis. History of bulging varicose veins and occasional pain. ER recommended see vascular. Review of Systems Constitutional: Negative for fatigue. Respiratory: Negative for cough, shortness of breath and wheezing. Cardiovascular: Negative for chest pain and palpitations. Gastrointestinal: Negative for abdominal pain, diarrhea, nausea and vomiting. Genitourinary: Negative for dysuria. Objective Physical Exam Constitutional: General: He is not in acute distress. Appearance: Normal appearance. HENT: Head: Normocephalic. Right Ear: Tympanic membrane and ear canal normal. Left Ear: Tympanic membrane and ear canal normal. Eyes: Extraocular Movements: Extraocular movements intact. Pupils: Pupils are equal, round, and reactive to light. Cardiovascular: Rate and Rhythm: Normal rate and regular rhythm. Heart sounds: No murmur heard. No friction rub. No gallop. Pulmonary: Breath sounds: Normal breath sounds. No wheezing, rhonchi or rales. Abdominal: General: Bowel sounds are normal. There is no distension. Palpations: Abdomen is soft. Tenderness: There is no abdominal tenderness. There is no guarding or rebound. Musculoskeletal: Left lower leg: No edema. Neurological: Mental Status: He is alert. Assessment/Plan Problem List Items Addressed This Visit Spondylolisthesis of lumbar region - Primary Pain unchanged and continue percocet PRN. Increase activity and walk regularly. Relevant Medications oxyCODONE-acetaminophen (Percocet) 5-325 MG tablet Thrombophlebitis of superficial veins of right lower extremity Recent pain and swelling along with history of painful varicose veins. Refer to vascular. Relevant Orders Ambulatory referral to Vascular Surgery Varicose veins of both lower extremities with pain Recent pain and swelling along with history of painful varicose veins. Refer to vascular. Relevant Orders Ambulatory referral to Vascular Surgery Gastroesophageal reflux disease without esophagitis Symptoms controlled with omeprazole and continue. Class 2 severe obesity due to excess calories with serious comorbidity and body mass index (BMI) of 39.0 to 39.9 in adult ([facility]) Weight loss indicated documented in this encounter [facility] Healthcare Evaluation note Diagnosis Spondylolisthesis of lumbar region documented in this encounter [facility] note* Diagnosis Spondylolisthesis of lumbar region- Primary Gastroesophageal reflux disease without esophagitis Esophageal reflux Spondylolisthesis of lumbar region- Primary Gastroesophageal reflux disease without esophagitis Esophageal reflux Thrombophlebitis of superficial veins of right lower extremity Varicose veins of both lower extremities with pain Class 2 severe obesity due to excess calories with serious comorbidity and body mass index (BMI) of 39.0 to 39.9 in adult ([facility]) documented in this encounter [facility] HealthcareEvaluation note* Diagnosis Spondylolisthesis of lumbar region- Primary Gastroesophageal reflux disease without esophagitis Esophageal reflux Spondylolisthesis of lumbar region- Primary Gastroesophageal reflux disease without esophagitis Esophageal reflux Thrombophlebitis of superficial veins of right lower extremity Varicose veins of both lower extremities with pain Class 2 severe obesity due to excess calories with serious comorbidity and body mass index (BMI) of 39.0 to 39.9 in adult ([facility]) Spondylolisthesis of lumbar region documented in this encounter [facility] HealthcareEvaluation note* Diagnosis Spondylolisthesis of lumbar region documented in this encounter [facility]Evaluation note* Diagnosis Vasculogenic erectile dysfunction, unspecified vasculogenic erectile dysfunction type Spondylolisthesis of lumbar region documented in this encounter [facility] note* Diagnosis Spondylolisthesis of lumbar region- Primary Gastroesophageal reflux disease without esophagitis Esophageal reflux Spondylolisthesis of lumbar region- Primary Gastroesophageal reflux disease without esophagitis Esophageal reflux Thrombophlebitis of superficial veins of right lower extremity Varicose veins of both lower extremities with pain Class 2 severe obesity due to excess calories with serious comorbidity and body mass index (BMI) of 39.0 to 39.9 in adult ([facility]) Gastroesophageal reflux disease without esophagitis Esophageal reflux Spondylolisthesis of lumbar region documented in this encounter [facility] note* Diagnosis Spondylolisthesis of lumbar region- Primary Gastroesophageal reflux disease without esophagitis Esophageal reflux Spondylolisthesis of lumbar region- Primary Gastroesophageal reflux disease without esophagitis Esophageal reflux Thrombophlebitis of superficial veins of right lower extremity Varicose veins of both lower extremities with pain Class 2 severe obesity due to excess calories with serious comorbidity and body mass index (BMI) of 39.0 to 39.9 in adult [place] [place] Annual physical exam- Primary Routine general medical examination at a health care facility Colon cancer screening Special screening for malignant neoplasms, colon Smoker Tobacco use disorder Thrombophlebitis of superficial veins of right lower extremity Varicose veins of both lower extremities with pain Class 3 severe obesity due to excess calories with serious comorbidity and body mass index (BMI) of 40.0 to 44.9 in adult Gastro-esophageal reflux disease without esophagitis documented in this encounter [facility] note* Diagnosis Spondylolisthesis of lumbar region- Primary Gastroesophageal reflux disease without esophagitis Esophageal reflux Spondylolisthesis of lumbar region- Primary Gastroesophageal reflux disease without esophagitis Esophageal reflux Thrombophlebitis of superficial veins of right lower extremity Varicose veins of both lower extremities with pain Class 2 severe obesity due to excess calories with serious comorbidity and body mass index (BMI) of 39.0 to 39.9 in adult [place] [place] Annual physical exam- Primary Routine general medical examination at a [facility] Colon cancer screening Special screening for malignant neoplasms, colon Smoker Tobacco use disorder Thrombophlebitis of superficial veins of right lower extremity Varicose veins of both lower extremities with pain Class 3 severe obesity due to excess calories with serious comorbidity and body mass index (BMI) of 40.0 to 44.9 in adult Gastro-esophageal reflux disease without esophagitis Spondylolisthesis of lumbar region documented in this encounter [facility] note* Diagnosis Spondylolisthesis of lumbar region- Primary Gastroesophageal reflux disease without esophagitis Esophageal reflux Spondylolisthesis of lumbar region- Primary Gastroesophageal reflux disease without esophagitis Esophageal reflux Thrombophlebitis of superficial veins of right lower extremity Varicose veins of both lower extremities with pain Class 2 severe obesity due to excess calories with serious comorbidity and body mass index (BMI) of 39.0 to 39.9 in adult [place] [place] Annual physical exam- Primary Routine general medical examination at a [facility] care facility Colon cancer screening Special screening for malignant neoplasms, colon Smoker Tobacco use disorder Thrombophlebitis of superficial veins of right lower extremity Varicose veins of both lower extremities with pain Class 3 severe obesity due to excess calories with serious comorbidity and body mass index (BMI) of 40.0 to 44.9 in adult Gastro-esophageal reflux disease without esophagitis Smoker Tobacco use disorder documented in this encounter [facility] HealthcareEvaluation note* Diagnosis Spondylolisthesis of lumbar region- Primary Gastroesophageal reflux disease without esophagitis Esophageal reflux Spondylolisthesis of lumbar region- Primary Gastroesophageal reflux disease without esophagitis Esophageal reflux Thrombophlebitis of superficial veins of right lower extremity Varicose veins of both lower extremities with pain Class 2 severe obesity due to excess calories with serious comorbidity and body mass index (BMI) of 39.0 to 39.9 in adult [place] [place] Annual physical exam- Primary Routine general medical examination at a health care facility Colon cancer screening Special screening for malignant neoplasms, colon Smoker Tobacco use disorder Thrombophlebitis of superficial veins of right lower extremity Varicose veins of both lower extremities with pain Class 3 severe obesity due to excess calories with serious comorbidity and body mass index (BMI) of 40.0 to 44.9 in adult ([facility] [place] Gastro-esophageal reflux disease without esophagitis Spondylolisthesis of lumbar region documented in this encounter [facility] Healthcare Summary Purpose Family History No Family History Records FoundNo Family History Records FoundNo Family History Records FoundNo Family History Records Found Advance Directives No Advanced Directives Records FoundNo Advanced Directives Records FoundNo Advanced Directives Records FoundNo Advanced Directives Records Found Additional Source Comments (unrecognized sect ion and content) No Status Records FoundNo Status Records FoundNo Status Records FoundNo Status Records Found INFORMATION SOURCE (unrecogn ized section and content) DATE CREATED AUTHOR 08/07/2017 [employer] [facility] DATE CREATED AUTHOR AUTHOR'S ORGANIZ ATION 01/21/[address] [facility] DATE CREATED AUTHOR AUTHOR'S ORGANIZ ATION 02/25/2024 [facility] DATE CREATED AUTHOR AUTHOR'S ORGANIZ ATION 06/19/2024 [facility] EPIC Reason for Visit (unrecogniz ed section and content) Reason Onset Date Comments Med Refill 03/26/2023 Reason Comments Follow-up 6 m Reason Onset Date Comments Med Refill 01/16/2024 Reason Onset Date Comments Med Refill 10/08/2023 Reason Onset Date Comments Med Refill 11/12/2023 Reason Comments Med Refill Reason Onset Date Comments Med Refill 02/18/2024 Reason Onset Date Comments Med Refill 03/19/2024 Reason Onset Date Comments Med Refill 04/21/2024 Reason Comments Annual Exam Reason Onset Date Comments Med Refill 06/26/2024 Reason Comments Med Change Request Reason Onset Date Comments Med Refill 07/29/2024 Reason Onset Date Comments Med Refill 08/28/2024 Reason Onset Date Comments Med Refill 09/29/2024 Care Teams (unrecognized sec tion and content) Tube Worker Relationship Specialty Start Date End Date Miguel Maurer MD PCP - General Family Medicine 12/13/22 Tube Worker Relationship Specialty Start Date End Date Miguel Maurer MD [address] [place] [phone] PCP - General Family Medicine 12/13/22 Miguel Maurer MD [address] [place] [phone] PCP - Medical [employer] 08/15/20 02/11/99 Tube Worker Relationship Specialty Start Date End Date Miguel Maurer MD [address] [place] [phone] PCP - General Family Medicine 12/13/22 Miguel Maurer MD [address] [place] [phone] PCP - Medical [employer] 08/15/20 02/11/99 Tube Worker Relationship Specialty Start Date End Date Miguel Maurer MD [address] [place] [phone] PCP - General Family Medicine 12/13/22 Miguel Maurer MD [address] [place] [address] PCP - Medical [employer] 08/15/20 02/11/99 Tube Worker Relationship Specialty Start Date End Date Miguel Maurer MD [address] [place] [address] PCP - General Family Medicine 12/13/22 Miguel Maurer MD [address] [place] [address] PCP - Medical [employer] 08/15/20 02/11/99 Tube Worker Relationship Specialty Start Date End Date Miguel Maurer MD [address] [place] [address] PCP - General Family Medicine 12/13/22 Miguel Maurer MD [address] [place] [address] PCP - Medical [employer] 08/15/20 02/11/99 Tube Worker Relationship Specialty Start Date End Date Miguel Maurer MD [address] [place] [address] PCP - General Family Medicine 12/13/22 Miguel Maurer MD [address] [place] [address] PCP - Medical [employer] 08/15/20 02/11/99 Tube Worker Relationship Specialty Start Date End Date Miguel Maurer MD [address] [place] [phone] PCP - General Family Medicine 12/13/22 Miguel Maurer MD [address] [place] [phone] PCP - Medical [employer] 08/15/20 02/11/99 Tube Worker Relationship Specialty Start Date End Date Miguel Maurer MD [address] [place] [phone] PCP - [facility] 12/13/22 Miguel Maurer MD [address] [place] [phone] PCP - [facility] 08/15/20 02/11/99 Tube Worker Relationship Specialty Start Date End Date Miguel Maurer MD [address] [place] [phone] PCP - General Family [facility] 12/13/22 Miguel Maurer MD [address] [place] [phone] PCP - Medical [facility] 08/15/20 02/11/99 Tube Worker Relationship Specialty Start Date End Date Miguel Maurer MD [address] [place] [phone] PCP - [facility] 12/13/22 Miguel Maurer MD [address] [place] [phone] PCP - Medical [employer] 08/15/20 02/11/99 FOR RECORDS PERTAINING TO PATIENTS WHO ARE OR HAVE BEEN ENROLLED IN A CHEMICAL DEPENDENCY/SUBSTANCEABUSE PROGRAM, SOME INFORMATION MAY BE OMITTED. This clinical summary was aggregated from multiple sources. Caution should be exercised in using it in the provision of clinical care. This summary normalizes information from multiple sources, and as a consequence, information in this document may materially change the coding, format and clinical context of patient data. In addition, data may be omitted in some cases. CLINICAL DECISIONS SHOULD BE BASED ON THE PRIMARY CLINICAL RECORDS. [employer] [facility]. provides no warranty or guarantee of the accuracy or completeness of information in this document.
--- NOTE | 2024-11-14 18:14 | PC.NURSE ---
pt c/o SOB, Right back pain that radiates to abdomen started yesterday
[2024-11-14 18:18] LABS: Glucose Urine UA NEGATIVE (NEGATIVE)
[2024-11-14 18:20] LABS: Hematocrit 42.6 % (42.0-54.0); Hemoglobin 14.6 g/dL (14.0-18.0); Immature Granulocytes Abs Auto 0.02 10^3/uL (0.00-0.03); Immature Granulocytes Pct Auto 0.2 % (0.0-0.5); Lymphocytes Absolute Auto 2.3 10^3/uL (1.2-3.8); Mean Corpuscular HGB Conc 34.3 g/dL (29.9-35.2); Mean Corpuscular Hemoglobin 29.6 pg (25.9-34.0); Mean Corpuscular Volume 86.4 fL (80.0-94.0); Platelet Count 298 10^3/uL (150-450); Red Blood Count 4.93 10^6/uL (4.70-6.10); White Blood Count 8.7 10^3/uL (4.0-11.0)
[2024-11-14] MEDS: KETOROLAC TROMETHAMINE 30 MG/ML VIAL IVP (18:20)
--- NOTE | 2024-11-14 18:24 | ED_ITS ---
HPI HPI - Back Pain/Injury General Chief Complaint: Back Pain/Injury Stated Complaint: SOB, SIDE PAIN, R ARM TINGLING Time Seen by Provider: 11/14/24 17:57 Source: patient Mode of arrival: walk-in Limitations: no limitations History of Present Illness HPI Narrative: Patient is coming to the ER with a right sided flank pain associated with severe pain that close and to sweats according to her the patient described, pain started yesterday and it is in the right flank radiating to the front mostly to the right lower abdomen , the patient did not have any vomiting but he had some nausea yesterday when the pain started, and the pain was not related to any fall or trauma, it is sometimes exacerbated by certain movement Related Data Home Medications ?Medication ?Instructions ?Recorded ?Confirmed omeprazole 40 mg capsule,delayed 40 mg PO Q8H 08/09/23 11/14/24 release Allergies Allergy/AdvReac Type Severity Reaction Status Date / Time No Known Drug Allergies Allergy Verified 08/09/23 23:03 Opioid HPI Opioid Management Most Recent Opioid Data: Last Pain Scale 3 Today, 18:20 Last MAR Pain Assessment Today, 18:20 Review of Systems ROS Status of ROS 10 or more systems reviewed and unremark able except as noted in history and below PFSH PFSH Social History Little interest or pleasure in doing things: not at all Feeling down, depressed, or hopeless: not at all Exam Narrative Exam Narrative: Nurses notes and vital signs reviewed and patient is not hypoxic. General: Well-appearing and in no apparent distress. Skin: Warm, dry, no pallor noted. No rash. Head: Normocephalic, atraumatic. Neck: Supple, non-tender. Cardiovascular: Regular Rate and Rhythm without murmur, gallop or rub. Respiratory: No accessory muscle use or respiratory distress. Lungs are clear to auscultation, no wheezing, rales or rhonchi Chest Wall: no tenderness Back: No midline thoracic or lumbar vertebral tenderness. Right CVA tenderness Musculoskeletal: normal ROM, no calf or popliteal tenderness, no lower extremity edema/swelling GI: Abdomen is soft, non-distended. Normal bowel sounds. No masses appreciated. Right lower quadrant tenderness and mildly in the right upper quadrant as well on deep palpation Neurological: A&O x4. No cranial nerve dysfunction observed. No truncal ataxia. Moves all extremities. Sensation intact. Psychiatric: Cooperative and interactive. Normal mood and affect. Constitutional Vital Signs, click to edit/add: Last Vital Signs Temp 98.5 F 11/14/24 17:52 Pulse 94 H 11/14/24 17:52 Resp 18 11/14/24 17:52 BP 135/84 11/14/24 17:52 Pulse Ox 95 11/14/24 17:52 O2 Del Method Room Air 11/14/24 17:52 Course Vital Signs Vital signs: Vital Signs Temperature 98.5 F 11/14/24 17:52 Pulse Rate 94 H 11/14/24 17:52 Respiratory Rate 18 11/14/24 17:52 Blood Pressure 135/84 11/14/24 17:52 Pulse Oximetry 95 11/14/24 17:52 Oxygen Delivery Method Room Air 11/14/24 17:52 Temperature 98.5 F 11/14/24 17:52 Pulse Rate 94 H 11/14/24 17:52 Respiratory Rate 18 11/14/24 17:52 Blood Pressure 135/84 11/14/24 17:52 Pulse Oximetry 95 11/14/24 17:52 Oxygen Delivery Method Room Air 11/14/24 17:52 MDM - Back Pain/Injury MDM Narrative Medical decision making narrative: The patient EKG in the ER showing sinus rhythm with a heart rate of [address] elevation or depression The patient presentation highly suspicious for possible kidney stone Lab Data Labs: Lab Results 11/14/24 Range/Units 18:03 WBC 8.7 (4.0-11.0) 10^3/uL RBC 4.93 (4.70-6.10) 10^6/uL Hgb 14.6 (14.0-18.0) g/dL Hct 42.6 (42.0-54.0) % MCV 86.4 (80.0-94.0) fL MCH 29.6 (25.9-34.0) pg MCHC 34.3 (29.9-35.2) g/dL RDW 13.3 (11.0-15.0) % Plt Count 298 (150-450) 10^3/uL MPV 9.2 L (9.5-13.5) fL Neut % (Auto) 65.3 (43.0-75.0) % Lymph % (Auto) 26.5 (20.5-60.0) % [place] % (Auto) 6.4 (1.7-12.0) % Eos % (Auto) 1.3 (0.9-7.0) % Baso % (Auto) 0.3 (0.2-2.0) % Neut # (Auto) 5.7 (1.4-6.5) 10^3/uL Lymph # (Auto) 2.3 (1.2-3.8) 10^3/uL [place] # (Auto) 0.6 (0.3-0.8) 10^3/uL Eos # (Auto) 0.1 (0.0-0.7) 10^3/uL Baso # (Auto) 0.0 (0.0-0.1) 10^3/uL Abs Immat Gran (auto) 0.02 (0.00-0.03) 10^3/uL Imm/Tot Granulo (auto) 0.2 (0.0-0.5) % Urine Color Lt. yellow (YELLOW) Urine Clarity Clear (CLEAR) Urine pH 5.5 (5.0-9.0) Ur Specific [place] >=1.030 A (1.005-1.025) Urine Protein Negative (NEG/TRACE) mg/dL Urine Glucose (UA) Negative (NEGATIVE) mg/dL Urine Ketones Negative (NEGATIVE) mg/dL Urine Occult Blood Negative (NEGATIVE) Urine Nitrite Negative (NEGATIVE) Urine Bilirubin Negative (NEGATIVE) Urine Urobilinogen 0.2 (0.2-1.0) EU/dL Ur Leukocyte Esterase Negative (NEGATIVE) Discharge Plan Discharge Patient Disposition: Still a Patient
[2024-11-14 18:35] LABS: Alanine Aminotransferase 43 U/L (16-63); Albumin Globulin Ratio 1.1; Albumin Level 4.0 g/dL (3.4-5.0); Alkaline Phosphatase 66 U/L (46-116); Anion Gap 15.1; Aspartate Amino Transferase 19 U/L (15-37); Blood Urea Nitrogen 19.0 mg/dL (7.0-18.0); Calcium 9.4 mg/dL (8.5-10.1); Carbon Dioxide 26.8 mmol/L (21.0-32.0); Chloride 103 mmol/L (98-107); Estimated GFR (African America >60 (>=60 mL/min/1.73m^2); Estimated GFR (Non-African Ame >60 (>=60 mL/min/1.73m^2); Globulin 3.7 g/dL; Glucose 111 mg/dL (74-106); Potassium 3.9 mmol/L (3.5-5.1); Sodium 141 mmol/L (136-145); Total Protein 7.7 g/dL (6.4-8.2)
[2024-11-14 18:36] LABS: Lipase 30.0 U/L (16.0-77.0)
--- NOTE | 2024-11-14 19:32 | ED_ITS ---
HPI HPI - General Adult General Chief complaint: Back Pain/Injury Stated complaint: SOB, SIDE PAIN, R ARM TINGLING Time Seen by Provider: 11/14/24 17:57 Source: patient Mode of arrival: walk-in Limitations: no limitations History of Present Illness HPI narrative: 49-year-old male presented to the emergency department and was initially seen by Dr. Marquis. Please see her full history and physical exam. Related Data Home Medications ?Medication ?Instructions ?Recorded ?Confirmed omeprazole 40 mg capsule,delayed 40 mg PO Q8H 08/09/23 11/14/24 release Previous Rx's ?Medication ?Instructions ?Recorded ibuprofen 800 mg tablet 800 mg PO Q8H PRN pain #20 t abs 11/14/24 methocarbamol 750 mg tablet 750 mg PO Q6H PRN pain #20 tabs 11/14/24 Allergies Allergy/AdvReac Type Severity Reaction Status Date / Time No Known Drug Allergies Allergy Verified 08/09/23 23:03 Opioid HPI Opioid Management Most Recent Opioid Data: Last Pain Scale 3 Today, 18:20 Last MAR Pain Assessment Today, 18:20 PFSH PFSH Social History Little interest or pleasure in doing things: not at all Feeling down, depressed, or hopeless: not at all Exam Constitutional Vital Signs, click to edit/add: Last Vital Signs Temp 98.5 F 11/14/24 17:52 Pulse 85 11/14/24 19:04 Resp 18 11/14/24 19:04 BP 123/67 11/14/24 19:04 Pulse Ox 94 L 11/14/24 19:04 O2 Del Method Room Air 11/14/24 17:52 Course Vital Signs Vital signs: Vital Signs Temperature 98.5 F 11/14/24 17:52 Pulse Rate 94 H 11/14/24 17:52 Respiratory Rate 18 11/14/24 17:52 Blood Pressure 135/84 11/14/24 17:52 Pulse Oximetry 95 11/14/24 17:52 Oxygen Delivery Method Room Air 11/14/24 17:52 Temperature 98.5 F 11/14/24 17:52 Pulse Rate 85 11/14/24 19:04 Respiratory Rate 18 11/14/24 19:04 Blood Pressure 123/67 11/14/24 19:04 Pulse Oximetry 94 L 11/14/24 19:04 Oxygen Delivery Method Room Air 11/14/24 17:52 Medical Decision Making [facility] Narrative Medical decision making narrative: Workup including CT of the abdomen is negative. The rest of his workup as well is negative including troponin and urinalysis. He will be treated symptomatically. Treatment diagnosis and follow-up were discussed with the patient. Differential Diagnosis Differential Diagnosis: Kidney stone, hematuria, muscle strain, UTI Lab Data Lab results reviewed: Yes I reviewed the patient's lab results Labs: Lab Results 11/14/24 Range/Units 18:03 WBC 8.7 (4.0-11.0) 10^3/uL RBC 4.93 (4.70-6.10) 10^6/uL Hgb 14.6 (14.0-18.0) g/dL Hct 42.6 (42.0-54.0) % MCV 86.4 (80.0-94.0) fL MCH 29.6 (25.9-34.0) pg MCHC 34.3 (29.9-35.2) g/dL RDW 13.3 (11.0-15.0) % Plt Count 298 (150-450) 10^3/uL MPV 9.2 L (9.5-13.5) fL Neut % (Auto) 65.3 (43.0-75.0) % Lymph % (Auto) 26.5 (20.5-60.0) % [place] % (Auto) 6.4 (1.7-12.0) % Eos % (Auto) 1.3 (0.9-7.0) % Baso % (Auto) 0.3 (0.2-2.0) % Neut # (Auto) 5.7 (1.4-6.5) 10^3/uL Lymph # (Auto) 2.3 (1.2-3.8) 10^3/uL [place] # (Auto) 0.6 (0.3-0.8) 10^3/uL Eos # (Auto) 0.1 (0.0-0.7) 10^3/uL Baso # (Auto) 0.0 (0.0-0.1) 10^3/uL Abs Immat Gran (auto) 0.02 (0.00-0.03) 10^3/uL Imm/Tot Granulo (auto) 0.2 (0.0-0.5) % Sodium 141 (136-145) mmol/L Potassium 3.9 (3.5-5.1) mmol/L Chloride 103 (98-107) mmol/L Carbon Dioxide 26.8 (21.0-32.0) mmol/L Anion Gap 15.1 BUN 19.0 H (7.0-18.0) mg/dL Creatinine 1.12 (0.70-1.30) mg/dL Est GFR ( Amer) >60 (>=60 mL/min/1.73m^2) Est GFR (Non-Af Amer) >60 (>=60 mL/min/1.73m^2) BUN/Creatinine Ratio 17.0 Glucose 111 H (74-106) mg/dL Calcium 9.4 (8.5-10.1) mg/dL Total Bilirubin 0.3 (0.2-1.0) mg/dL AST 19 (15-37) U/L ALT 43 (16-63) U/L Alkaline Phosphatase 66 (46-116) U/L Troponin I High Sens 4.5 (4.0-76.1) pg/mL Total Protein 7.7 (6.4-8.2) g/dL Albumin 4.0 (3.4-5.0) g/dL Globulin 3.7 g/dL Albumin/Globulin Ratio 1.1 Lipase 30.0 (16.0-77.0) U/L Urine Color Lt. yellow (YELLOW) Urine Clarity Clear (CLEAR) Urine pH 5.5 (5.0-9.0) Ur Specific [place] >=1.030 A (1.005-1.025) Urine Protein Negative (NEG/TRACE) mg/dL Urine Glucose (UA) Negative (NEGATIVE) mg/dL Urine Ketones Negative (NEGATIVE) mg/dL Urine Occult Blood Negative (NEGATIVE) Urine Nitrite Negative (NEGATIVE) Urine Bilirubin Negative (NEGATIVE) Urine Urobilinogen 0.2 (0.2-1.0) EU/dL Ur Leukocyte Esterase Negative (NEGATIVE) Imaging Data CT scan - abdomen: Radiologist's impression: ITS Impressions Abdomen/Pelvis CT 11/14/24 18:04 IMPRESSION: No acute inflammatory changes. Fatty hepatomegaly. 2.8 cm left hepatic lesion. May be further assessed with liver MRI with and without contrast Impression dictated by: Osman Gillis M.D. 11/14/2024 6:58 PM Dictation Location: [place] [address] Electronically authenticated by: [id number] Y Date: 11/14/2024 18:58 Discharge Plan Discharge Chief Complaint: Back Pain/Injury Clinical Impression: Flank pain Patient Disposition: Home, Self-Care Time of Disposition Decision: 19:31 Condition: Good Mode of Transportation: Private Vehicle Prescriptions / Home Meds: New ibuprofen 800 mg tablet 800 mg PO Q8H PRN (Reason: pain) Qty: 20 0RF methocarbamol 750 mg tablet 750 mg PO Q6H PRN (Reason: pain) Qty: 20 0RF No Action omeprazole 40 mg capsule,delayed release(DR/EC) 40 mg PO Q8H Print Language: Algerian Instructions: Flank Pain (ED) Referrals: Miguel Hester MD [Primary Care Provider, Family Practice] - 1 week
== END 2024-11-14 20:01 | disposition home or self-care (01) ==
PROVIDERS: Emergency Medicine; Emergency Provider Emergency Medicine; PCP Family Medicine
DX: R10.9 Unspecified abdominal pain (principal); K76.9 Liver disease, unspecified
CPT/HCPCS: 36415; 74176; 80053; 81003; 83690; 84484; 85025; 93005; 96374; 99285; J1885

== ENCOUNTER 2024-12-25 13:21 | Outpatient (OUT) | payer OTHER, SELFPAY ==
--- OUTSIDE RECORDS SUMMARY | 2024-12-25 13:24 | XMS_ITS | Clinical Summary ---
Author Organization [facility] tem Address [id number] [address] [place] [address] Care Team Providers Care Health Record Technician Name Role Phone Miguel Hester MD Primary Care Provider [phone] Social History Tobacco UseTypesPacks/DayYears UsedDateSmoking Tobacco: Never AssessedChildcare AnswerDate GdplbipbUxqnmguedAyxdquj47/12/2019EmploymentAnswerDate Recorded TweywtznmoGdmloqm67/12/2019Purpose - LifeAnswerDate RecordedPurpose and direction in xuwiLvkzaij26/11/2021Sex and Gender InformationValueDate Recorded Sex Assigned at BirthNot on fileLegal SrtXpes9309/17/2014 11:59 AM EDTGender IdentityNot on fileSexual OrientationNot on file Plan of Treatment Health MaintenanceDue DateLast DoneCommentsDepression Oraitakcw67/02/1987Tobacco Gwzmvrchl52/02/1987Adult BMI Jzpabnlzh24/02/1993DTaP,Tdap and Td Vaccines (1 - Tdap)1993Influenza Qjhmqqg3710/13/2024Zoster (Shingles) Vaccine (1 of 2) 2024 [employer] Not on file Insurance Care Teams Team MemberRelationshipSpecialtyStart DateEnd Date Miguel Hester MD [facility]
--- OUTSIDE RECORDS SUMMARY | 2024-12-25 13:24 | XMS_ITS | Clinical Summary ---
Author Organization [facility] Healthcare Address [address] [place] [address] Care Team Providers Care Hand Kiss Setter Name Role Phone Miguel Hester MD Primary Care Provider [phone] Miguel Hester MD Unavailable Allergies No known active allergies Medications MedicationSigDispense QuantityRefillsLast FilledStart DateEnd DateStatus omeprazole (PriLOSEC) [address] capsule Indications:Gastroesophageal reflux disease without esophagitisTAKE 1 CAPSULE BY MOUTH IN THE MORNING BEFORE MEALS, DO NOT CRUSH OR CHEW 90 capsule 5Active nicotine (Nicoderm, Step 1) 21 MG/24HR patch Indications:SmokerPlace 1 patch over 24 hours on the skin 1 (one) time each day at the same time 30 patch 5Active buPROPion SR (Wellbutrin SR) 150 MG 12 hr tablet Indications:SmokerTAKE 1 TABLET BY MOUTH IN THE MORNING AND BEFORE BEDTIME, DO NOT CRUSH, CHEW, OR SPLIT 180 tablet 5Active sildenafil (Viagra) 100 MG tablet Indications:Vasculogenic erectile dysfunction, unspecified vasculogenic erectile dysfunction typeTAKE ONE TABLET BY MOUTH NEEDED 30 MINUTES PRIOR TO ANTICIPATED ACTIVITY 9 tablet 5Active Active Problems ProblemNoted DateDiagnosed CslkXboolwtxbai62/12/1028Uywdxhzhohuu02/12/2025nnual physical exam06/16/2024 Assessment & Plan (06/16/2024 3:36 PM EDT): Due for labs. Discussed proper diet and regular aerobic exercise. Need aerobic exercise 5-6 days a week for 30 minutes at a time. Smaller portions and limit total calories. Never had colon cancer screening and willing to have cologuard. Tetanus every 10 years. Advised not to smoke. Bcrlce7106/16/2024 Assessment & Plan (06/16/2024 3:06 PM EDT): Smokes 2 PPD for about 30 years. Start wellbutrin and patches. Will order LDCT chest after turning 49. Class 3 severe obesity due to excess calories with serious comorbidity and body mass index (BMI) of40.0 to 44.9 in adult12/17/2023 Assessment & Plan (06/16/2024 3:37 PM EDT): Weight loss indicated Assessment & Plan (12/17/2023 1:48 PM EST): Weight loss indicated Erectile dysfunction of organic gkbakh3206/18/2023Lumbar disc herniation with erbmjmbadwkvx43/06/2024Spondylolisthesis of lumbar ojvkfp9406/18/2023 Assessment & Plan (12/17/2023 1:45 PM EST): Pain unchanged and continue percocet PRN. Increase activity and walk regularly. Assessment & Plan (06/18/2023 1:44 PM EDT): Pain unchanged and continue percocet PRN. Increase activity and walk regularly. Thrombophlebitis of superficial veins of right lower timbaeasp53/06/2024 Assessment & Plan (06/16/2024 3:06 PM EDT): Recent pain and swelling along with history of painful varicose veins. Refer to vascular. Assessment & Plan (12/17/2023 1:46 PM EST): Recent pain and swelling along with history of painful varicose veins. Refer to vascular. Varicose veins of both lower extremities with pain06/18/2023 Assessment & Plan (06/16/2024 3:06 PM EDT): Recent pain and swelling along with history of painful varicose veins. Refer to vascular. Assessment & Plan (12/17/2023 1:46 PM EST): Recent pain and swelling along with history of painful varicose veins. Refer to vascular. Gastroesophageal reflux disease without fstadxpivfy35/06/2024 Assessment & Plan (12/17/2023 1:45 PM EST): Symptoms controlled with omeprazole and continue. Assessment & Plan (06/18/2023 1:44 PM EDT): Severe symptoms and start omeprazole. Encounters DateTypeDepartmentCare JcnxInwkhvkvowx83/18/2025Refill [facility] [address] [place] [phone] Miguel Hester MD Spondylolisthesis of lumbar regionfrom Last 3 Months Social History Tobacco UseTypesPacks/DayYears UsedDateSmoking Tobacco: Every DayCigarettes Smokeless Tobacco: Never Tobacco Cessation:Ready to Q uit: Not Asked; Counseling Given: Not Answered Sex and Gender InformationValueDate RecordedSex Assigned at BirthNot on file Legal KxbZgah2604/26/2022 8:12 PM EDTGender IdentityNot on fileSexual Orientation Not on file Last Filed Vital Signs Vital SignReadingTime TakenCommentsBlood Eribekan463/7805 2:27 PM EDT Mzmaj323206/16/2024 2:27 PM CDZKjnardrizac49.6 ??C (97.8 ??F)06/16/2024 2:27 PM EDTRespiratory Ljxn438306/16/2024 2:27 PM EDTOxygen Bqdbtuzozm93%06/16/2024 2:27 PM EDTInhaled Oxygen Concentration--Lksgjl311 kg (270 lb)06/16/2024 2:27 PM EDT Onurec554.7 cm (5' 8 )06/16/2024 2:27 PM EDTBody Mass Index41.05006/16/2024 2:27 PM EDT Plan of Treatment Health MaintenanceDue DateLast DoneCommentsCT Guvrzisftlkm08/02/1975FIT 1974FOBT1974 9055Ojnimpszftnsn48/02/1975Pneumococcal Vaccine: Pediatrics (0 to 5 Years) and At-Risk Patients (6 to 64 Years) (1 of 2 - PCV)1993 Mrztxpqoywn85/07/2025olorectal Cancer Bvkodcpxl21/07/2025OVID-19 Vaccine (1 - 2023- season)2024Influenza Vaccine (#1)2024FIT-DNA05/23/2026 05/24/2023 Procedures Procedure NamePriorityDate/TimeAssociated DiagnosisCommentsLAB COLOGUARD?? COLON CANCER XEQRFIXbidmol92/11/2024 9:01 AM EDTfrom Last 3 Months or Most Recently Relevant to Health Maintenance Results * Cologuard?? colon cancer screening (05/24/2023 9:01 AM EDT)Specimen (Source) Anatomical Location / LateralityCollection Method / VolumeCollection Time Received TimeStool Narrative Authorizing ProviderResult TypeResult StatusMarc Mir [facility] ORDERABLESFinal Result from Last 3 Months or Most Recently Relevant to Health Maintenance Insurance Care Teams Team MemberRelationshipSpecialtyStart DateEnd Date Miguel Hester MD PCP - GeneralFamily Udcqeiio76/1/23 Miguel Hester MD [address] [place] [place] [address] PCP - Medical [place] [employer]08/16/2111
--- OUTSIDE RECORDS SUMMARY | 2024-12-25 13:29 | XMS_ITS | CCD ---
Author Organization [facility] Care Team Providers Care Airplane Refueler Name Role Phone Petr Chung Unavailable Unavailable DR MIGUEL MAURER Admitting Unavailable ERASTO, DR MIGUEL Tubbs Attending Unavailable DR MIGUEL MAURER Primary Care Unavailable ERASTO, DR MIGUEL Tubbs Consulting Unavailable Miguel Maurer MD Primary Care Provider Miguel Maurer MD Primary Care Provider Miguel Maurer MD Unavailable Hamlet Cyr Jr Attending Unavailable Hamlet Cyr Jr Admitting Unavailable Miguel Maurer Primary Care Unavailable MIGUEL MAURER Attending Unavailable MIGUEL MAURER Attending Unavailable Miguel Maurer MD Primary Care Provider [phone] Miguel Maurer MD Unavailable Miguel Maurer MD Primary Care Provider [phone] Jenny Marquis MD Attending Provider Miguel Maurer MD Attending Provider [phone] Medications Current Medications MedicationDrug Class(es)DatesSig (Normalized)Sig (Original)acetaminophen 325 mg / oxyCODONE hydrochloride 5 mg oral tablet (20 sources)Opioid AgonistStart: 12-02-2024 End: 12-78-2828xdnf 1 tablet by mouth four times daily as needed for pain Oxycodone-Acetaminophen 5-325 mg tablet Active 1 TAB PO Four times daily as needed for pain 120 30 0 December 04, 2024 Spondylolisthesis of lumbar region Spondylolisthesis, lumbar region Complies with drug therapyStart: 10-31-2024 End: 06-88-4665hcin 1 tablet by mouth four times daily as needed for pain Oxycodone-Acetaminophen 5-325 mg tablet Discontinued 1 TAB PO Four times daily as needed for pain 120 30 0 October 31, 2024 October 31, 2024 8:49am Spondylolisthesis of lumbar region Spondylolisthesis, lumbar regionStart: 10-31-2024 End: 05-51-7252owir 1 tablet by mouth four times daily as needed for pain Oxycodone-Acetaminophen 5-325 mg tablet Discontinued 1 TAB PO Four times daily as needed for pain 120 30 0 October 31, 2024 December 02, 2024 10:40am Spondylolisthesis of lumbar region Spondylolisthesis, lumbar regionStart: 11-12-2023 End: 48-64-3448yitn 1 tablet by mouth four times daily as needed for pain oxyCODONE-acetaminophen (Percocet) 5-325 MG tablet Indications: Spondylolisthesis of lumbar region Take 1 tablet by mouth 4 (four) times a day as needed for moderate pain or severe pain 120 tablet 09/29/2024 10/29/2024 ActiveStart: 09-05-2023 End: 22-63-1164sagv 1 tablet by mouth four times daily as needed for pain oxyCODONE-acetaminophen (Percocet) 5-325 MG tablet Indications: Spondylolisthesis of lumbar region Take 1 tablet by mouth 4 (four) times a day as needed for moderate pain or severe pain 120 tablet 10/08/2023 11/10/2023 Discontinued (Reorder)Start: 02-21-2023 End: 11-58-6743dfen 1 tablet by mouth four times daily as needed for pain oxyCODONE-acetaminophen (Percocet) 5-325 MG tablet Indications: Spondylolisthesis of lumbar region Take 1 tablet by mouth 4 (four) times a day as needed for moderate pain or severe pain 120 tablet 0 03/26/2023 Brxpql66 hr buPROPion hydrochloride 150 mg extended release oral tablet (9 sources)AminoketoneStart: 06-16-2024 End: 03-55-6328vbxk 1 tablet by mouth every twelve hours at bedtimebuPROPion SR (Wellbutrin SR) 150 MG 12 hr tablet Indications: Smoker TAKE 1 TABLET BY MOUTH IN THE MORNING AND BEFORE BEDTIME, DO NOT CRUSH, CHEW, OR SPLIT 180 tablet 3 07/08/2024 Wxblzm27 hr nicotine 0.875 mg/hr transdermal system (8 sources)Cholinergic Nicotinic AgonistStart: 32-90-6262kwhdsczf (Nicoderm, Step 1) 21 MG/24HR patch Indications: Smoker Place 1 patch over 24 hours on the skin 1 (one) time each day at the same time 30 patch 1 06/16/2024 Active omeprazole 40 mg delayed release oral capsule (20 sources)Proton Pump InhibitorStart: 11-21-2024 End: 68-56-1304qsnc 1 capsule by mouth once dailyOmeprazole 40 mg capsule,delayed release(DR/EC) Active 40 MG PO Daily 30 November 25, 2024 2:51pm Complies with drug therapyStart: 11-15-2023 End: 11-30-6841gudl 1 capsule by mouth before mealtimeomeprazole (PriLOSEC) [address] capsule Indications: Gastroesophageal reflux disease without esophagitis TAKE 1 CAPSULE BY MOUTH IN THE MORNING BEFORE MEALS, DO NOT CRUSH OR CHEW 90 capsule 1 05/14/2024 ActiveStart: 22-11-3061uzrv 1 capsule by mouth before mealtimeomeprazole (PriLOSEC) [address] capsule Indications: Gastroesophageal reflux disease without esophagitis Take 1 capsule (40 mg) by mouth in the morning. Take before meals. Do not crush or chew.. 30 capsule 5 06/18/2023 ActivepredniSONE 10 mg oral tablet (6 sources)Start: 07-30-2023 End: 45-42-5761dnjo 6 tablets by mouth once daily, then take 4 tablets by mouth once daily, then take 2 tablets bymouth once daily, then take 1 tablet by mouth once dailypredniSONE (Deltasone) 10 MG tablet Indications: Spondylolisthesis of lumbar region 6 PO daily x 3 days, 4 PO daily x 3 days, 2 PO daily x 3 days, 1 PO daily x 3 days 39 tablet 07/30/2023 12/17/2023 Discontinuedsildenafil 100 mg oral tablet (20 sources)Phosphodiesterase 5 InhibitorStart: 11-03-6250Kkkdlgcdmh 100 mg tablet Active 100 MG PO Daily as needed for sexual activity 9 October 22, 2024 11:00pm administer 30 minutes to 4 hours before activity Complies with drug therapyStart: 90-57-0411qghlugbnyb (Viagra) 100 MG tablet Indications: Vasculogenic erectile dysfunction, unspecified vasculogenic erectile dysfunction type TAKE ONE TABLET BY MOUTH NEEDED 30 MINUTES PRIOR TO ANTICIPATEDACTIVITY 9 tablet 5 08/07/2024 ActiveStart: 90-60-2153ajivyckclz (Viagra) 100 MG tablet Indications: Vasculogenic erectile dysfunction, unspecified vasculogenic erectile dysfunction type TAKE ONE TABLET BY MOUTH NEEDED 30 MINUTES PRIOR TO ANTICIPATEDACTIVITY 9 tablet 5 06/05/2024 ActiveStart: 39-63-5481igruuxfyen (Viagra) 100 MG tablet Indications: Vasculogenic erectile dysfunction, unspecified vasculogenic erectile dysfunction type TAKE ONE TABLET BY MOUTH NEEDED 30 MINUTES PRIOR TO ANTICIPATEDACTIVITY 9 tablet 5 03/31/2024 Active Start: 67-36-3732zzgmbsmiab (Viagra) 100 MG tablet Indications: Vasculogenic erectile dysfunction, unspecified vasculogenic erectile dysfunction type TAKE ONE TABLET BY MOUTH NEEDED 30 MINUTES PRIOR TO ANTICIPATEDACTIVITY 9 tablet 5 01/14/2024 ActiveStart: 09-04-2023 End: 18-09-4730ufhxhrvhkb (Viagra) 100 MG tablet Indications: Vasculogenic erectile dysfunction, unspecified vasculogenic erectile dysfunction type TAKE ONE TABLET BY MOUTH NEEDED 30 MINUTES PRIOR TO ANTICIPATEDACTIVITY 9 tablet 5 11/12/2023 ActiveStart: 29-48-2541tjvqnlbcpv (Viagra) 100 MG tablet Indications: Vasculogenic erectile dysfunction, unspecified vasculogenic erectile dysfunction type TAKE ONE TABLET BY MOUTH NEEDED 30 MINUTES PRIOR TO ANTICIPATEDACTIVITY 9 tablet 5 02/15/2023 Active Problems Active Problems Problem ClassificationProblemDateDocumented DateEpisodic/ChronicDiabetes mellitus without complication (7 sources)Prediabetes; Translations: [Prediabetes]Onset: EpisodicDisorders of lipid metabolism (7 sources)Dyslipidemia; Translations: [Hyperlipidemia, unspecified]Onset: 404206-26-5681SafkzasZzwikslqsf disorders (20 sources)Gastroesophageal reflux disease without esophagitis; Translations: [Gastro-esophageal reflux disease without esophagitis]Onset: 06-18-2023 42-97-3725TpptfnuTjxuc acquired deformities (20 sources)Lumbar spondylolisthesis; Translations: [Spondylolisthesis, lumbar region]Onset: 997949-45-5585VghhlpgeVsmhw male genital disorders (20 sources)Secondary erectile dysfunction; Translations: [Male erectile dysfunction, unspecified]Onset: 221443-84-5792BvmqkgpKkjwi male genital disorders (1 source)Vasculopathic erectile dysfunction; Translations: [Male erectile dysfunction, unspecified]35-02-4466GyifbalPdofj nutritional; endocrine; and metabolic disorders (20 sources)Severe obesity; Translations: [Class 2 severe obesity due to excess calories with serious comorbidity and body mass index (BMI) of 39.0 to 39.9 in adult ([facility])]Onset: 429269-63-7891LzhklfsZlatb nutritional; endocrine; and metabolic disorders (1 source)Obesity; Translations: [Obesity, unspecified]59-57-2934VuocgetKrkob screening for suspected conditions (not mental disorders or infectious disease) (2 sources)Patient encounter status; Translations: [Encounter for screening for malignant neoplasm of colon]79-02-5918OdmnrzwqYtjcaqxvuky; intervertebral disc disorders; other back problems (20 sources)Lumbar disc prolapse with radiculopathy; Translations: [Intervertebral disc disorders with radiculopathy, lumbar region]Onset: 019013-92-3812RgscxlzbNkrfxwrwu-pxfjunb disorders (12 sources)Smoker; Translations: [Nicotine dependence, unspecified, uncomplicated]Onset: 938790-21-5078AvtyjghRprkbrzhzvpx (2 sources)CONTACT W/AND (SUSP) EXPOS COVID-19; Translations: [CONTACT W/AND (SUSP) EXPOS COVID-19]Onset: 94-75-0470Qcnogcdj veins of lower extremity (20 sources)Varicose veins of lower extremity; Translations: [Varicose veins of bilateral lower extremities with pain]Onset: 943149-74-2053LgxvtvbrKrqmv infection (1 source)COVID-19; Translations: [COVID-19]Onset: 01-19-2021 Past or Other Problems Problem ClassificationProblemDateDocumented DateEpisodic/ChronicPhlebitis; thrombophlebitis and thromboembolism (20 sources)Thrombophlebitis of superficial vein of right lower limb; Translations: [Phlebitis and thrombophlebitis of superficial vessels of right lower extremity]Onset: 43-73-580484816916-46-1862LyrdckvlQlkvtiknneyr (1 source)CONTACT W/AND (SUSP) EXPOS COVID-19; Translations: [CONTACT W/AND (SUSP) EXPOS COVID-19]Onset: 01-14-2021 Results Test NameValueInterpretationReference RangeFacilityBasophils Auto (Bld) [#/Vol] Ordered By: Jenny Marquis on 77-07-8541Rstzjxhdv (Bld) [#/Vol]0.0 10 3/uL0.0-0.[address] [facility] HospitalBasophils/100 WBC Auto (Bld)Ordered By: Jenny Marquis on 84-37-6449Bkpusrpkp/100 WBC (Bld)0.3 %0.2-2.0[facility] HospitalEosinophils/100 WBC Auto (Bld)Ordered By: Jenny Marquis on 11-14-2024 Eosinophils/100 WBC (Bld)1.3 %0.9-7.0[facility] Erythrocyte distribution width Auto (RBC) [Ratio]Ordered By: Jenny Marquis on 33-69-2599Hcdouppweqc distribution width (RBC) [Ratio]13.3 %11.0-15.0[facility] HospitalGlobulin Calc (S) [Mass/Vol]Ordered By: Jenny Marquis on 18-58-3485Epwljgpz (S) [Mass/Vol]3.7 g/dLMount St. Mary Hospital Glomerular filtration rate (GFR) estimation in non- AmericanOrdered By: Jenny Marquis on 59-37-1582SZC/1.73 sq M.predicted among non-blacks MDRD (S/P/Bld) [Vol rate/Area]mL/min/{1.73_m2}>=60 mL/min/1.73m 2FKeenan Private HospitalHematocrit Auto (Bld) [Volume fraction]Ordered By: Jenny Marquis on 66-24-1742Vanfetrgnh (Bld) [Volume fraction]42.6 %42.0-54.0[facility] HospitalHemoglobin [Mass/volume] in BloodOrdered By: Jenny Marquis on 11-82-2513Youysbqyep (Bld) [Mass/Vol]14.6 g/dL14.0-18.0[facility] HospitalLaboratory - Chemistry and Chemistry - challengeOrdered By: Jenny Diab on 05-32-6688Meskcyi [Mass/Vol]4.0 g/dL3.4-5.0[facility] HospitalALP [Catalytic activity/Vol]66 U/S64-023HobgvmofhMount St. Mary Hospital ALT [Catalytic activity/Vol]43 U/G29-73QlnjfrmuyMount St. Mary HospitalAST [Catalytic activity/Vol]19 U/F68-98JxtdczzkgMount [address]. Mary HospitalBilirubin [Mass/Vol]0.3 mg/dL0.2-1.0[facility] HospitalBilirubin Ql (U) NegativeNEGATIVEMount St. Mary HospitalCalcium [Mass/Vol]9.4 mg/dL 8.5-10.1FKeenan Private HospitalChloride [Moles/Vol]103 mmol/L98-[address] [facility] HospitalCO2 [Moles/Vol]26.8 mmol/L21.0-32.0[facility] HospitalCreatinine [Mass/Vol]1.12 mg/dL0.70-1.30[facility] HospitalGFR/1.73 sq M.predicted MDRD (S/P/Bld) [Vol rate/Area] mL/min/{1.73_m2}>=60 mL/min/1.73m 2FKeenan Private HospitalGlucose (U) [Mass/Vol]NegativeNEGATIVEMount St. Mary HospitalGlucose [Mass/Vol]111 mg/nDHqzw63-080WecnleoswMount St. Mary HospitalKetones Ql (U)NegativeNEGATIVE [facility] HospitalLipase [Catalytic activity/Vol]30.0 U/L 16.0-77.0[facility] HospitalpH (U)5.5 [pH]5.0-9.0[facility] HospitalPotassium [Moles/Vol]3.9 mmol/L3.5-5.1FKeenan Private HospitalProtein [Mass/Vol]7.7 g/dL6.4-8.2FKeenan Private Hospital Sodium [Moles/Vol]141 mmol/P119-077CimrstaybWayne HealthCare Main Campuspecific gravity (U) [Rel density]>=1.818Tkivcenr0.005-1.025[facility] HospitalUrea nitrogen [Mass/Vol]19.0 mg/dLHigh7.0-18.0[facility] HospitalUrea nitrogen/Creatinine [Mass ratio]17.0 mg/mgMount St. Mary HospitalUrobilinogen Qn (U)0.2 {Bernabe'U}/dL0.2-1.0[facility] HospitalLaboratory - Hematology and Cell countsOrdered By: Jenny Marquis on 45-99-6919Ksfbbbkm granulocytes/100 WBC (Bld)0.2 %0.0-0.5FKeenan Private HospitalLaboratory - Specimen informationOrdered By: Jenny Marquis on 92-48-5958Etrkdgmyih (U)CLEARCLEARFKeenan Private HospitalColor (U)LT. YELLOWYELLOWMount St. Mary HospitalLaboratory - UrinalysisOrdered By: Jenny Marquis on 54-14-5781Ikytosuaq esterase Test strip Ql (U)NegativeNEGATIVE [facility] HospitalNitrite Ql (U)NegativeNEGATIVEMount St. Mary HospitalProtein Ql (U)NegativeNEG/TRACEMount St. Mary HospitalLeukocytes [#/volume] corrected for nucleated erythrocytes in Blood by Automated counOrdered By: Jenny Marquis on 59-64-6523NHJ corrected for nucl RBC Auto (Bld) [#/Vol]8.7 10 3/uL4.0-11.0[facility] Lymphocytes Auto (Bld) [#/Vol]Ordered By: Jenny Marquis on 51-92-5968Udttmprdfnb (Bld) [#/Vol]2.3 10 3/uL1.2-3.8[facility] HospitalLymphocytes/100 WBC Auto (Bld)Ordered By: Jenny Marquis on 25-80-6601Wstepmtifop/100 WBC (Bld)26.5 %20.5-60.0[facility] Auto (RBC) [Entitic mass]Ordered By: Jenny Marquis on 51-50-7254LIN (RBC) [Entitic mass]29.6 pg25.9-34.0[facility] Auto (RBC) [Mass/Vol]Ordered By: Jenny Marquis on 00-39-7720ULSO (RBC) [Mass/Vol]34.3 g/dL29.9-35.2FKeenan Private HospitalMCV Auto (RBC) [Entitic vol]Ordered By: Jenny Marquis on 03-77-0061TQX (RBC) [Entitic vol]86.4 fL80.0-94.0[facility] HospitalMonocytes Auto (Bld) [#/Vol]Ordered By: Jenny Marquis on 59-74-2889Lwkpznnjj (Bld) [#/Vol]0.6 10 3/uL0.3-0.8[facility] HospitalMonocytes/100 WBC Auto (Bld)Ordered By: Jenny Marquis on 00-88-0501Mrqptqoqw/100 WBC (Bld)6.4 %1.7-12.0[facility] HospitalNeutrophils Auto (Bld) [#/Vol]Ordered By: Jenny Marquis on 54-51-9924Xfyavuhjxhf (Bld) [#/Vol]5.7 10 3/uL1.4-6.5FKeenan Private HospitalNeutrophils/100 WBC Auto (Bld)Ordered By: Jenny Benitez on 11-14-2024 Neutrophils/100 WBC (Bld)65.3 %43.0-75.0[facility] HospitalNo Panel InformationOrdered By: Jenny Marquis on 67-76-8081Qjjambuwpds # (Auto)0.1 10 3/uL0.0-0.7FKeenan Private HospitalImmature Granulocyte # (Auto)0.02 10 3/uL0.00-0.03[facility] HospitalTroponin I High Sensitivity4.5 pg/mL4.0-76.1FKeenan Private HospitalComment on above:CUT-OFF POINTS HAVE BEEN ESTABLISHED BASED ON THE FOURTHUNIVERSAL DEFINITION OF MYOCARDIAL INFARCTION. THE UPPERREFERENCE LIMIT (URL) OF TROPONIN, DEFINED THE 99THPERCENTILE OF cTnI DISTRIBUTION IN A REFERENCE POPULATION,HAS BEEN CONFIRMED THE DECISION THRESHOLD FOR MIDIAGNOSIS.99TH PERCENTILE = 76.2 PG/MLNOTE: HIGH-SENSITIVITY TROPONIN ASSAY IS NOT INTENDED TO BEUSED IN ISOLATION BUT SHOULD BE INTERPRETED IN CONJUNCTIONWITH OTHER DIAGNOSTIC AND CLINICAL INFORMATION.Urine Microscopic ReviewNOMount St. Mary HospitalUrine Occult BloodNegativeNEGATIVEMount St. Mary HospitalPlatelet mean volume Auto (Bld) [Entitic vol]Ordered By: Jenny Benitez on 21-42-9411Jumouuca mean volume (Bld) [Entitic vol]9.2 fLLow9.5-13.5FKeenan Private HospitalPlatelets Auto (Bld) [#/Vol]Ordered By: Jenny Benitez on 05-79-0141Qgdbpzebn (Bld) [#/Vol]298 10 3/oM033-402EqhqvcbdzMount St. Mary HospitalRBC Auto (Bld) [#/Vol]Ordered By: Jenny Benitez on 84-21-4441NCB (Bld) [#/Vol]4.93 10 6/uL 4.70-6.10Way[facility] HealthCare Main Campuserum or plasma albumin/globulin mass ratioOrdered By: Jenny Marquis on 53-02-0309[place]/Globulin [Mass ratio]1.1 {ratio}[facility] HealthCare Main Campuserum or plasma anion gap determination Ordered By: Jenny Marquis on 90-28-1029Rbkos gap [Moles/Vol]15.1 mmol/LFKeenan Private HospitalALL CBC WITH AUTO DIFFon 94-32-4891AYPXIRZCC ABSOLUTE DVIJ0BIHE HealthcareBasophils/100 WBC (Bld)0.4 %0.2 - 2.0 %[facility] Eosinophils/100 WBC (Bld)2 %0.9 - 7.0 %[facility] HealthcareErythrocyte distribution width (RBC) [Ratio]13.2 %11.0 - 15.0 %[facility] HealthcareHematocrit (Bld) [Volume fraction]43.1 %42.0 - 54.0 %[facility] HealthcareHemoglobin (Bld) [Mass/Vol]14.4 g/dL 14.0 - 18.0 g/dLNOMS HealthcareIMMATURE GRANULOCYTES ABS AUTO0.02[facility] Immature granulocytes/100 WBC (Bld)0.3 %0.0 - 0.5 %[facility] HealthcareInterpretation and review of laboratory resultsAbnormalNOMS HealthcareLYMPHOCYTES ABSOLUTE AUTO1.9[facility] HealthcareLymphocytes/100 WBC (Bld)27 %20.5 - 60.0 %[facility] MCH (RBC) [Entitic mass]29.6 pg25.9 - 34.0 pgNOEllett Memorial HospitalMCHC (RBC) [Mass/Vol]33.4 g/dL29.9 - 35.2 g/dLNOEllett Memorial HospitalMCV (RBC) [Entitic vol]88.7 fL 80.0 - 94.0 fLNOVA HealthcareMONOCYTES ABSOLUTE AUTO0.7[facility] Monocytes/100 WBC (Bld)10 %1.7 - 12.0 %[facility] HealthcareNEUTROPHILS ABSOLUTE AUTO 4.2[facility] HealthcareNeutrophils/100 WBC (Bld)60.3 %43.0 - 75.0 %[facility] Platelet mean volume (Bld) [Entitic vol]8.9 fLLow9.5 - 13.5 fLCox Walnut LawnTBH EO #0.1NOMS HealthcareTBH [id number] Regional Medical CenterTB RBC4.86NOEllett Memorial HospitalTB WBC 7NOEllett Memorial HospitalCLINISYNCNOMS HealthcareMLR HEMOGLOBIN A1Con 27-11-4625Xvswxwy [Mass/Vol]128 mg/dLNOEllett Memorial HospitalZeyywrboieFyW7n (Bld) [Mass fraction]6.1 %4.5 - 6.2 % [facility] HealthcareComment on above:ADA RECOMMENDED LIMIT 4.0 - 6.0 ADA THERAPEUTIC TARGET < 7.0 ACTION SUGGESTED > 7.0 CLINISYNCNOVA HealthcareUS.doppler Lower extremity vein - righton 51-08-1281[place]una, [place] [address] Ultrasound Report Signed Patient: SELIN SOLIMAN MR#: [id number] : 1975 Acct:[id number] Age/Sex: 47 / M ADM Date: 08/10/23 Loc: RAD Attending Dr: Tay Ely M.D. Ordering Physician: Tay Ely M.D. Date of Service: 08/10/23 Procedure(s): US venous doppler LE RT Accession Number(s): [id number] cc: Tay Ely M.D.; Miguel Maurer M.D. [place] [id number] Patient Name: SELIN SOLIMAN MRN: [id number] date: 1975 Sex: M Assigned Patient Location: RAD Current Patient Location: ED.MAIN Accession/Order Number: [id number] Exam Date: 08/10/2023 08:08 Report Date: 08/10/2023 09:04 At the request of: TAY ELY Procedure: US venous doppler LE RT EXAM: US venous doppler LE RT HISTORY: Right leg pain and swelling COMPARISON: None. TECHNIQUE: Grayscale, color and Doppler FINDINGS: Region: Right leg Thrombus: Extensive echogenic thrombus identified in superficial varicose veins extending from the mid thigh to the proximal calf Flow: Absent flow corresponding to thrombus Augmentation: Normal augmentation of the deep veins Compressibility: Noncompressibility corresponding to thrombus These findings discussed with Dr. Joey France by telephone 9:04 AM US/US venous doppler LE RT IMPRESSION: Extensive superficial vein thrombus in varicose veins from the mid thigh to the proximal calf No deep vein thrombus Electronically authenticated by: DANN GERBER Date: 08/10/2023 09:04 Dictated By: Dann Gerber M.D. Signed By: 08/10/23906 DD/ 3 TD/TT: Computer Software Engineer:TBHRadiology, Radiologist, - 08/10/2023 [place] [address] Ultrasound Report Signed Patient: SELIN SOLIMAN MR#: [id number] : 1975 Acct:[id number] Age/Sex: 47 / M ADM Date: 08/10/23 Loc: RAD Attending Dr: Tay Ely M.D. Ordering Physician: Tay Ely M.D. Date of Service: 08/10/23 Procedure(s): US venous doppler LE RT Accession Number(s): [id number] cc: Tay Ely M.D.; Miguel Maurer M.D. [place] [address] Patient Name: SELIN SOLIMAN MRN: [id number] date: 1975 Sex: M Assigned Patient Location: RAD Current Patient Location: ED.MAIN Accession/Order Number: [id number] Exam Date: 08/10/2023 08:08 Report Date: 08/10/2023 09:04 At the request of: TAY ELY Procedure: US venous doppler LE RT EXAM: US venous doppler LE RT HISTORY: Right leg pain and swelling COMPARISON: None. TECHNIQUE: Grayscale, color and Doppler FINDINGS: Region: Right leg Thrombus: Extensive echogenic thrombus identified in superficial varicose veins extending from the mid thigh to the proximal calf Flow: Absent flow corresponding to thrombus Augmentation: Normal augmentation of the deep veins Compressibility: Noncompressibility corresponding to thrombus These findings discussed with Dr. Joey France by telephone 9:04 AM US/US venous doppler LE RT IMPRESSION: Extensive superficial vein thrombus in varicose veins from the mid thigh to the proximal calf No deep vein thrombus Electronically authenticated by: DANN GERBER Date: 08/10/2023 09:04 Dictated By: Dann Gerber M.D. Signed By: 08/10/23906 DD/ 3 TD/TT: Computer Software Engineer: [facility] HealthcareRadiology Study observation (narrative)[facility]US.do[facility] Lower extremity vein - rightOrdered By: Radiologist Radiology on 61-80-6987[employer] Work Phone: [phone]-21 PCR (CVDTBH)on 41-77-5270KZQY-CoV-2 (COVID- 19) RNA ROSALIND+probe Ql (Unsp spec)DetectedCritically abnormalNOT DETECTEDThe [facility] Md, Cancer CenterComment on above:Result Comment: This test is not yet approved or cleared by the [place] FDA. When there are no FDA-approved or cleared tests available, and other criteria are met, FDA can make tests available under an emergency access mechanism called an Emergency Use Authorization (EUA). The EUA for this test is supported by the [place] of Health and Human Service's (HHS's) declaration [...] may no longer be used). Performed By: Marcellus### CVDTBH #### [facility] [address] [address] [address] Lloyd López Vital Signs Date TimeVital SignValuePerforming JioauidyfOkfdszyf64-77-2999 13:10-0500Body mwbifv246.26 cmMiguel Maurer MD Work Phone: [phone] [place], [place] 4465911-05-2025 13:10-0500 Body mass index (BMI) [Ratio]39.7 kg/m2Miguel Maurer MD Work Phone: [phone] [place], [place] 4465911-05-2025 13:10-0500 Body qgfgygkwfer54.1 [degF]Miguel Maurer MD Work Phone: [phone] [place], [place] 4465911-05-2025 13:10-0500 Body kbveww064.01 kgMiguel Maurer MD Work Phone: [phone] [place], [place] 4465911-05-2025 13:10-0500 Diastolic blood mm[Hg]Miguel Maurer MD Work Phone: [phone] [place], [place] 4465911-05-2025 13:10-0500 Heart rate81 /minMiguel Maurer MD Work Phone: [phone] [place], [place] 4465911-05-2025 13:10-0500 Respiratory rate16 /minMiguel Maurer MD Work Phone: [phone] [place], [place] 4465911-05-2025 13:10-0500 SaO2% (BldA) [Mass fraction]9 %Miguel Maurer MD Work Phone: [phone] [place], [place] 4465911-05-2025 13:10-0500 Systolic blood tndviupy327 mm[Hg]Miguel Maurer MD Work Phone: [phone] [place], [place] 4465905-05-2025 14:27-0400 Body .7 cmMiguel Maurer MD Work Phone: [facility] LawnHvysgjvfsi75-19-8043 14:27-0400Body mass index (BMI) [Ratio]41.05 kg/m2Miguel Maurer MD Work Phone: [facility] LawnWnnscsokah28-66-0362 14:27-0400Body temperature 97.81 [degF]Miguel Maurer MD Work Phone: [facility] LawnVjnpmmxkqt76-52-7237 14:27-0400Body fqmyym709.47 kgMiguel Maurer MD Work Phone: [facility] LawnGiqpttsmbn91-88-9163 14:27-0400Diastolic blood yzsxckgm10 mm[Hg]Miguel Maurer MD Work Phone: [facility] LawnFnbchzppoc84-91-5999 14:27-0400Heart rate79 /min Miguel Maurer MD Work Phone: [facility] LawnOhleuejqrz23-93-8642 14:27-0400Respiratory rate18 /minMiguel Maurer MD Work Phone: [phone] [place], [place] [address]Mzhtqtqdys93-66-5761 14:27-6329AiB9% (BldA) [Mass fraction]94 %Miguel Maurer MD Work Phone: [facility] LawnYmvwegdckm10-19-7553 14:27-0400Systolic blood krnqenuh467 mm[Hg]Miguel Maurer MD Work Phone: [facility] LawnSwwfaghdyo65-46-9784 13:14-0500Body rwpbod983.7 cmMiguel Maurer MD Work Phone: [facility] LawnOvopnvmnfi95-14-6980 13:14-0500Body mass index (BMI) [Ratio]39.23 kg/m2Miguel Maurer MD Work Phone: [facility] LawnZclqxwumez59-19-1725 13:14-0500Body temperature 97.5 [degF]Miguel Maurer MD Work Phone: [facility] LawnCmgstjjbgp09-78-5714 13:14-0500Body cqyotk223.03 kgMiguel Maurer MD Work Phone: [facility] LawnSqkvwlbpnh09-02-6180 13:14-0500Diastolic blood cvlzejct23 mm[Hg]Miguel Maurer MD Work Phone: noEllett [facility] HospitalIyzfuyilbr65-98-3797 13:14-0500Heart rate71 /min Miguel Maurer MD Work Phone: noEllett [facility] HospitalZsgurzkxqg06-60-3793 13:14-0500Respiratory rate18 /minMiguel Maurer MD Work Phone: noEllett [facility] HospitalKctppgzpdq53-69-2747 13:14-7561GaV2% (BldA) [Mass fraction]95 %Miguel Maurer MD Work Phone: noEllett Memorial HospitalFbsdqorela02-64-3062 13:14-0500Systolic blood qrfvymke709 mm[Hg]Miguel Maurer MD Work Phone: [facility] Encounters Encounter DateEncounter TypeCare ProviderFacilityStart: 12-17-2024 End: 90-79-4872momzdejkyuVpvg Naderer MD Work Phone: -[facility] ClydeStart: 12-17-2024 End: 07-00-2334Tpdnfje encounter procedureMiguel Maurer MD-[facility] Work Phone: Start: 93-03-8233Kne-patient / Non-visitMartanner Marquis MD-[facility] Work Phone: Start: 09-29-2024 End: 01-93-1223IiytfgEjgo Naderer MD Work Phone: n[facility] CWM FMComment on above:Spondylolisthesis of lumbar regionStart: 08-28-2024 End: 12-64-0139PibpdzBppo Naderer MD Work Phone: [facility] CWM FMComment on above:Spondylolisthesis of lumbar regionStart: 07-29-2024 End: 65-91-1662HeifwzUigi Naderer MD Work Phone: n[facility] CWM FMComment on above:Spondylolisthesis of lumbar regionStart: 07-08-2024 End: 90-04-4616LckezaIcws Naderer MD Work Phone: NOAN CWM FMComment on above:SmokerStart: 06-26-2024 End: 72-71-8640LoyfmzIvos Naderer MD Work Phone: NOUB CWM FMComment on above:Spondylolisthesis of lumbar regionStart: 06-19-2024 End: 23-47-8028Uutmvkukc Result EncounterMiguel Maurer MD Work Phone: [facility] External Department UnsolicitedStart: 06-19-2024 End: 03-80-4148Aeatohydm Result EncounterMiguel Maurer MD Work Phone: [facility] External Department UnsolicitedStart: 06-16-2024 End: 07-97-6271Srzorpip preventive med est patient 40-64yrsMarc Erasto GERONIMO Work Phone: NOID CWM FMComment on above:Annual physical exam (Primary Dx); Colon cancer screening; Smoker; Thrombophlebitis of superficial veins of right lower extremity; Varicose veins of both lower extremities with pain; Class 3 severe obesity due to excess calories with serious comorbidity and body mass index (BMI) of40.0 to 44.9 in adult; Gastro-esophageal reflux disease without esophagitisStart: 06-16-2024 End: 17-64-0959byndklwoxuSTVA NADERERNot AvailableStart: 06-16-2024 End: 21-77-5374Sughdm flowsSeth Maurer MD Work Phone: NOON CWM FMStart: 06-16-2024 End: 50-83-1899Zvavon flowsSeth Maurer MD Work Phone: NOVC CWM FMStart: 06-16-2024 End: 97-75-6682Syjrvfz encounter Jose Miguel Maurer MD Work Phone: NODD HealthcareStart: 05-14-2024 End: 66-14-8490ZplizyDnna Naderer MD Work Phone: [facility] CWM FMComment on above:Gastroesophageal reflux disease without esophagitis; Spondylolisthesis of lumbar regionStart: 04-21-2024 End: 82-97-8861FhriecHgpyLea Maurer MD Work Phone: [facility] C[facility] FMComment on above:Spondylolisthesis of lumbar regionStart: 03-19-2024 End: 95-80-6162WgrqyeOeoy Naderer MD Work Phone: [facility] CWM FMComment on above:Spondylolisthesis of lumbar regionStart: 02-18-2024 End: 24-13-2953MfmqrgAeseLea Maurer MD Work Phone: [facility] CWM FMComment on above:Spondylolisthesis of lumbar regionStart: 01-18-2024 End: 20-88-5307fsrysabzhgAldgsw Radatz JrFacility:[facility] Main Campustart: 01-16-2024 End: 69-54-8309AlpjlqOrph Naderer MD Work Phone: [facility] CWM FMComment on above:Spondylolisthesis of lumbar regionStart: 12-17-2023 End: 17-77-6205Rwfnxzthuy Maurer MD Work Phone: [facility] CWM FMStart: 12-17-2023 End: 65-13-1978Mpvpkpthuy Maurer MD Work Phone: [facility] CWM FMStart: 12-17-2023 End: 97-96-6649igweyywkudUDUW NADERERNot AvailableStart: 12-17-2023 End: 35-42-5962Imbzuh outpatient visit 25 minutesMiguel Maurer MD Work Phone: [facility] CWM FMComment on above:Spondylolisthesis of lumbar region (Primary Dx); Gastroesophageal reflux disease without esophagitis; Thrombophlebitis of superficial veins of right lower extremity; Varicose veins of both lower extremities with pain; Class 2 severe obesity due to excess calories with serious comorbidity and body mass index (BMI) of39.0 to 39.9 in adult ([facility])Start: 11-12-2023 End: 13-53-5445CscmgzLcnk Naderer MD Work Phone: noMS [facility] FMComment on above:Spondylolisthesis of lumbar regionStart: 11-09-2023 End: 10-63-1767IcmzidRbab Naderer MD Work Phone: noMS [facility] FMComment on above:Vasculogenic erectile dysfunction, unspecified vasculogenic erectile dysfunction type; Spondylolisthesis of lumbar regionStart: 10-08-2023 End: 50-77-0728YkinycFvpufbs LykinsNOMS [facility] FMComment on above:Spondylolisthesis of lumbar regionStart: 08-10-2023 End: 41-19-5478Tsdrgklnv Result EncounterGeneric External Data ProviderNOMS External Department UnsolicitedStart: 08-10-2023 End: 57-06-1028Mwyfepise Result EncounterGeneric External Data ProviderNOMS External Department UnsolicitedStart: 21-93-0610JadnlxRlkc Naderer MD Work Phone: noms [facility] FMComment on above:Spondylolisthesis of lumbar regionStart: 01-14-2021 End: 81-01-6490lxhlmebifkAC MIGUEL A NADERERFacility:H2Ytmdb: 02-28-2017 End: 52-19-9735BavbyuilwtYolu KovesdiFacility:CD:[id number] Procedures DateProcedureProcedure DetailPerforming ClinicianStart: 38-42-8293UDZ CBC WITH AUTO DIFFMiguel Maurer MD Work Phone: Start: 10-08-1629BWY HEMOGLOBIN P3IOosmMiguel Maurer MD Work Phone: Start: 81-31-9775Nny-scan xtr veins unilateral/limited studyGeneric External Data Provider Plan of Treatment DateCare ActivityDetailAuthorStart: 00-02-7114Klmjbihmq for malignant neoplasm of colonCrockett HospitalStart: 12-17-2024 End: 80-98-3586Gnxxdkh encounter lzppksnyl41/05/2025 1:00 PM EST Office Visit [facility] [address] [place] [phone] Miguel Maurer MD [address] [place] [address] [facility] CWM FMStart: 14-55-7778Xsfzakvse vaccinationNOVA HealthcareStart: 06-16-2024 End: 87-82-7101Idfgjna encounter procedureNOMS CWM FMComment on above:Arrived Start: 06-16-2024 End: 43-45-4416Lttgc metabolic 1998 panel - Serum or PlasmaBasic metabolic panel Lab Routine Annual physical exam Expected: 06/16/2024 (Approximate), Expires: 06/16/2025NOVA HealthcareComment on above:Expected: 06/16/2024 (Approximate), Expires: 06/16/2025Start: 06-16-2024 End: 66-32-9385CMV W Auto Differential panel - BloodCBC and differential Lab Routine Annual physical exam Expected: 06/16/2024 (Approximate), Expires: 0 06/16/2025[facility] HealthcareComment on above:Expected: 06/16/2024 (Approximate), Expires: 06/16/2025Start: 06-16-2024 End: 24-29-9751Mnaaeqfyim A1c/Hemoglobin.total in BloodHemoglobin A1c Lab Routine Annual physical exam Expected: 06/16/2024 (Approximate), Expires: 06/16/2025[facility] Work Phone: Comment on above:Expected: 06/16/2024 (Approximate), Expires: 06/16/2025Start: 06-16-2024 End: 65-49-7948Mpnoijr function 2000 panel - Serum or PlasmaHepatic function panel Lab Routine Annual physical exam Expected: 06/16/2024 (Approximate), Expires: 06/16/2025NOVA HealthcareComment on above:Expected: 06/16/2024 (Approximate), Expires: 06/16/2025Start: 06-16-2024 End: 10-35-0538Qkcrt 1996 panel - Serum or PlasmaLipid panel Lab Routine Annual physical exam Expected: 06/16/2024 (Approximate), Expires: 06/16/2025[facility] HealthcareComment on above:Expected: 06/16/2024 (Approximate), Expires: 06/16/2025Start: 06-16-2024 End: 78-77-9826Gadezoetqcu colorectal cancer DNA and occult blood screening [Presence] in StoolCologuard colon cancer screening Lab Routine Colon cancer screening Expected: 06/16/2024 (Approximate), Expires: 06/16/2025[facility] Healthcare Comment on above:Expected: 06/16/2024 (Approximate), Expires: 06/16/2025Start: 06-16-2024 End: 87-27-6192Xsizohrl specific Ag [Mass/volume] in Serum or PlasmaPSA Lab Routine Annual physical exam Expected: 06/16/2024 (Approximate), Expires: 06/16/2025[facility] HealthcareComment on above:Expected: 06/16/2024 (Approximate), Expires: 06/16/2025Start: 06-16-2024 End: 28-23-0366Lyfqsjevrlr [Units/volume] in Serum or PlasmaTSH Lab Routine Annual physical exam Expected: 06/16/2024 (Approximate), Expires: 06/16/2025[facility] HealthcareComment on above:Expected: 06/16/2024 (Approximate), Expires: 06/16/2025Start: 34-15-4038Xjabjestf for malignant neoplasm of colonNOMS HealthcareStart: 12-17-2023 End: 32-91-7059Ddbvoxz encounter bviiwypbp05/04/2024 1:00 PM EST Office Visit [facility] [address] [place] [address] Miguel Maurer MD [address] [place] [phone] [facility] FMStart: 38-79-2535Twjcvlilt vaccinationInfluenza Vaccine (#1)[facility] HealthcareStart: 06-18-2023 End: 15-31-1185Eohjnnc encounter nzhsgqxly17/06/2024 1:15 PM EDT Office Visit [facility] [address] [place] [address] Miguel Maurer MD [address] [place] [address] [facility] CWM FMStart: 52-30-4557Hgicviswe vaccinationInfluenza Vaccine (#1)NOM HealthcareStart: 91-04-0172Ceneyicvo for malignant neoplasm of colonNOMS [facility] Payers DatePayer CategoryPayerPolicy [id number] Health InsuranceMEDICAL MUTUAL [id number] [employer]DER [employer] [id number] 2022-Present [address] [place] [id number] Social History DateTypeDetailFacilityTobacco smoking status NHISTobacco smoking consumption unknownNOMS HealthcareStart: 26-38-8531Uzn Assigned At BirthNot on fileNOMS HealthcareStart: 06-18-2023 End: 71-50-4510Rcvsdg identityNot on fileNOMS HealthcareStart: 88-33-8609Xtzcicu smoking status NHISNever smoked tobaccoNOMS HealthcareStart: 06-18-2023 End: 98-01-8695Slclmrd use and exposureSmokeless tobacco non-userNOMS Healthcare Start: 06-18-2023 End: 59-51-1159Udkxqmx of Social functionNOMS HealthcareStart: 06-16-2024 End: 31-70-4900Rwxbzyo smoking status NHISSmokes tobacco dailyNOMS Healthcare History of tobacco useCigarette SmokerNOMS HealthcareStart: 69-20-3898YdpIrnd [facility] HealthcareSexMale (finding)[facility] Main Campustart: 92-61-7581Pls Assigned At [facility] Clinical Notes 12-17-2023 to 06-16-2024 Note Date & GsaqQbnuWxcfxxne55-58-9487 History of Present illness Narrative* Miguel Maurer MD - 06/16/2024 3:37 PM EDTAssociated Problem(s): Class 3 severe obesity due to excess calories with serious comorbidity and body mass index (BMI) of 40.0 to 44.9 in adult Weight loss indicated * Miguel Maurer MD - 06/16/2024 3:07 PM EDTAssociated Problem(s): Annual physical exam Due for labs. Discussed proper diet and regular aerobic exercise. Need aerobic exercise 5-6 days a week for 30 minutes at a time. Smaller portions and limit total calories. Never had colon cancer screening and willing to have cologuard. Tetanus every 10 years. Advised not to smoke. * Miguel Maurer MD - 06/16/2024 3:06 PM EDTAssociated Problem(s): Smoker Smokes 2 PPD for about 30 years. Start wellbutrin and patches. Will order LDCT chest after turning 49. * Miguel Maurer MD - 06/16/2024 3:06 PM EDTAssociated Problem(s): Thrombophlebitis of superficial veins of right lower extremity Recent pain and swelling along with history of painful varicose veins. Refer to vascular. * Miguel Maurer MD - 06/16/2024 3:06 PM EDTAssociated Problem(s): Varicose veins of both lower extremities with pain Recent pain and swelling along with history of painful varicose veins. Refer to vascular. * Miguel Maurer MD - 06/16/2024 2:30 PM EDT Images from the original note were not included. Subjective Patient ID: Selin Soliman is a 48 y.o. male who presents [...] in leg and hard to lift leg. Occasionalweakness in leg and at times will give [...] Cologuard colon cancer screening documented in this [facility]04-15-2025 Telephone encounter Note* Telephone Encounter - Miguel Maurer MD - 05/27/2024 11:27 AM EDT [place] [address]Pqzmkyfimf76-19-7997 Miscellaneous Notes* Telephone Encounter - Miguel Maurer MD - 05/27/2024 11:27 AM EDT * Telephone Encounter - ANA MERRILL - 05/14/2024 8:37 AM EDT MEDICATION SENT TO [facility] documented in this [facility]04-02-2025 Telephone encounter Note* Telephone Encounter - ANA MERRILL - 05/14/2024 8:37 AM EDT MEDICATION SENT TO [facility] LawnPvaapbrsrq86-88-3390 History of Present illness Narrative* Miguel Maurer MD - 12/17/2023 1:48 PM ESTAssociated Problem(s): Class 2 severe obesity due to excess calories with serious comorbidity and body mass index (BMI) of 39.0 to 39.9 in adult ([facility]) Weight loss indicated * Miguel Maurer MD - 12/17/2023 1:46 PM ESTAssociated Problem(s): Varicose veins of both lower extremities with pain Recent pain and swelling along with history of painful varicose veins. Refer to vascular. * Miguel Maurer MD - 12/17/2023 1:46 PM ESTAssociated Problem(s): Thrombophlebitis of superficial veins of right lower extremity Recent pain and swelling along with history of painful varicose veins. Refer to vascular. * Miguel Maurer MD - 12/17/2023 1:45 PM ESTAssociated Problem(s): Spondylolisthesis of lumbar region Pain unchanged and continue percocet PRN. Increase activity and walk regularly. * Miguel Maurer MD - 12/17/2023 1:45 PM ESTAssociated Problem(s): Gastroesophageal reflux disease without esophagitis Symptoms controlled with omeprazole and continue. * Miguel Maurer MD - 12/17/2023 1:00 PM EST Images from the original note were not included. Subjective Patient ID: Selin Soliman is a 48 y.o. male who presents for Follow-up (6 m). Follow up back pain. Back pain stable. Continues to have pain in low back and across top hips. Painradiates into left gluteal region and down left [...] serious comorbidity and body mass index (BMI) of39.0 to 39.9 in adult ([facility]) Weight loss indicated documented in this encounterNOMS HealthcareEvaluation note* Diagnosis Spondylolisthesis of lumbar region documented in this encounter [facility] HealthcareEvaluation note* Diagnosis Spondylolisthesis of lumbar region- Primary Gastroesophageal reflux disease without esophagitis Esophageal reflux Spondylolisthesis of lumbar region- Primary Gastroesophageal reflux disease without esophagitis Esophageal reflux Thrombophlebitis of superficial veins of right lower extremity Varicose veins of both lower extremities with pain Class 2 severe obesity due to excess calories with serious comorbidity and body mass index (BMI) of39.0 to 39.9 in adult ([facility]) documented in this encounter [facility] HealthcareEvaluation note* Diagnosis Spondylolisthesis of lumbar region- Primary Gastroesophageal reflux disease without esophagitis Esophageal reflux Spondylolisthesis of lumbar region- Primary Gastroesophageal reflux disease without esophagitis Esophageal reflux Thrombophlebitis of superficial veins of right lower extremity Varicose veins of both lower extremities with pain Class 2 severe obesity due to excess calories with serious comorbidity and body mass index (BMI) of39.0 to 39.9 in adult ([facility]) Spondylolisthesis of lumbar region documented in this encounter [facility] HealthcareEvaluation note* Diagnosis Spondylolisthesis of lumbar region documented in this encounter [facility] HealthcareEvaluation note* Diagnosis Vasculogenic erectile dysfunction, unspecified vasculogenic erectile dysfunction type Spondylolisthesis of lumbar region documented in this encounter [facility] HealthcareEvaluation note* Diagnosis Spondylolisthesis of lumbar region- Primary Gastroesophageal reflux disease without esophagitis Esophageal reflux Spondylolisthesis of lumbar region- Primary Gastroesophageal reflux disease without esophagitis Esophageal reflux Thrombophlebitis of superficial veins of right lower extremity Varicose veins of both lower extremities with pain Class 2 severe obesity due to excess calories with serious comorbidity and body mass index (BMI) of39.0 to 39.9 in adult ([facility]) Gastroesophageal reflux disease without esophagitis Esophageal reflux Spondylolisthesis of lumbar region documented in this encounter [facility] HealthcareEvaluation note* Diagnosis Spondylolisthesis of lumbar region- Primary Gastroesophageal reflux disease without esophagitis Esophageal reflux Spondylolisthesis of lumbar region- Primary Gastroesophageal reflux disease without esophagitis Esophageal reflux Thrombophlebitis of superficial veins of right lower extremity Varicose veins of both lower extremities with pain Class 2 severe obesity due to excess calories with serious comorbidity and body mass index (BMI) of39.0 to 39.9 in adult ([facility]) Annual physical exam- Primary Routine general medical examination at a health care facility Colon cancer screening Special screening for malignant neoplasms, colon Smoker Tobacco use disorder Thrombophlebitis of superficial veins of right lower extremity Varicose veins of both lower extremities with pain Class 3 severe obesity due to excess calories with serious comorbidity and body mass index (BMI) of40.0 to 44.9 in adult Gastro-esophageal reflux disease without esophagitis documented in this encounter [facility] HealthcareEvaluation note* Diagnosis Spondylolisthesis of lumbar region- Primary Gastroesophageal reflux disease without esophagitis Esophageal reflux Spondylolisthesis of lumbar region- Primary Gastroesophageal reflux disease without esophagitis Esophageal reflux Thrombophlebitis of superficial veins of right lower extremity Varicose veins of both lower extremities with pain Class 2 severe obesity due to excess calories with serious comorbidity and body mass index (BMI) of39.0 to 39.9 in adult ([facility]) Annual physical exam- Primary Routine general medical examination at a health care facility Colon cancer screening Special screening for malignant neoplasms, colon Smoker Tobacco use disorder Thrombophlebitis of superficial veins of right lower extremity Varicose veins of both lower extremities with pain Class 3 severe obesity due to excess calories with serious comorbidity and body mass index (BMI) of40.0 to 44.9 in adult Gastro-esophageal reflux disease without esophagitis Spondylolisthesis of lumbar region documented in this encounter [facility] HealthcareEvaluation note* Diagnosis Spondylolisthesis of lumbar region- Primary Gastroesophageal reflux disease without esophagitis Esophageal reflux Spondylolisthesis of lumbar region- Primary Gastroesophageal reflux disease without esophagitis Esophageal reflux Thrombophlebitis of superficial veins of right lower extremity Varicose veins of both lower extremities with pain Class 2 severe obesity due to excess calories with serious comorbidity and body mass index (BMI) of39.0 to 39.9 in adult ([facility]) Annual physical exam- Primary Routine general medical examination at a health care facility Colon cancer screening Special screening for malignant neoplasms, colon Smoker Tobacco use disorder Thrombophlebitis of superficial veins of right lower extremity Varicose veins of both lower extremities with pain Class 3 severe obesity due to excess calories with serious comorbidity and body mass index (BMI) of40.0 to 44.9 in adult Gastro-esophageal reflux disease without esophagitis Smoker Tobacco use disorder documented in this encounter [facility] HealthcareEvaluation note* Diagnosis Spondylolisthesis of lumbar region- Primary Gastroesophageal reflux disease without esophagitis Esophageal reflux Spondylolisthesis of lumbar region- Primary Gastroesophageal reflux disease without esophagitis Esophageal reflux Thrombophlebitis of superficial veins of right lower extremity Varicose veins of both lower extremities with pain Class 2 severe obesity due to excess calories with serious comorbidity and body mass index (BMI) of39.0 to 39.9 in adult ([facility]) Annual physical exam- Primary Routine general medical examination at a health care facility Colon cancer screening Special screening for malignant neoplasms, colon Smoker Tobacco use disorder Thrombophlebitis of superficial veins of right lower extremity Varicose veins of both lower extremities with pain Class 3 severe obesity due to excess calories with serious comorbidity and body mass index (BMI) of40.0 to 44.9 in adult ([facility]) Gastro-esophageal reflux disease without esophagitis Spondylolisthesis of lumbar region documented in this encounter [facility] HealthcareEvaluation noteNo assessment information availableCommunity Memorial Hospital Work Phone: Reason for referral (narrative)No reason for referral information availableCommunity Memorial Hospital Work Phone: Summary Purpose Family History No Family History Records FoundNo Family History Records FoundNo Family History Records FoundNo Family History Records Found Advance Directives Advance Directive Response Recorded Date/ Time Advance Directives No December 5:56pm Chief Complaint and Reason for Visit Chief Complaint Admit Date Established Patient December 17, 2024 1 :04pm Additional Source Comments (unrecognized sect ion and content) No Status Records FoundNo Status Records FoundNo Status Records FoundNo Status Records Found INFORMATION SOURCE (unrecogn ized section and content) DATE CREATED AUTHOR 08/07/2017 [facility] DATE CREATED AUTHOR AUTHOR'S ORGANIZ ATION 01/21/2021 [facility] DATE CREATED AUTHOR AUTHOR'S ORGANIZ ATION 02/25/2024 [facility] DATE CREATED AUTHOR AUTHOR'S ORGANIZ ATION 06/19/2024 [facility] EPIC Reason for Visit (unrecogniz ed section and content) ReasonOnset DateCommentsMed Ysjrta524ReasonCommentsFollow-up6 mReason Onset DateCommentsMed Xippyq044ReasonOnset DateCommentsMed Refill 4ReasonOnset DateCommentsMed Anmmmv804ReasonCommentsMed Refill ReasonOnset DateCommentsMed Sqhlia0902/18/2024ReasonOnset DateCommentsMed Refill 03/19/2024ReasonOnset DateCommentsMed Iwyjgx9804/21/2024ReasonCommentsAnnual Exam ReasonOnset DateCommentsMed Siomoe7006/26/2024ReasonCommentsMed Change Request ReasonOnset DateCommentsMed Qymhaq6607/29/2024ReasonOnset DateCommentsMed Refill 08/28/2024ReasonOnset DateCommentsMed Qishpu6609/29/2024 Care Teams (unrecognized sec tion and content) Team MemberRelationshipSpecialtyStart DateEnd Date Miguel Maurer MD [facility]12/13/22Team MemberRelationshipSpecialtyStart DateEnd Date Miguel Maurer MD [address] [place] [phone] [facility]12/13/22 Miguel Maurer MD [address] [place] [address] [facility]08/16/2111Te MemberRelationshipSpecialty Start DateEnd Date Miguel Maurer MD [address] [place] [address] [facility]12/13/22 Miguel Maurer MD [address] [place] [address] [facility]08/16/2111Te MemberRelationshipSpecialty Start DateEnd Date Miguel Maurer MD [address] [place] [address] PCP - [facility] Yzzekqti59/1/23 Miguel Maurer MD [address] [place] [address] PCP - [facility]08/16/2111Team MemberRelationshipSpecialty Start DateEnd Date Miguel Maurer MD [address] [place] [address] PCP - [facility]12/13/22 Miguel Maurer MD [address] [place] [address] PCP - [facility]08/16/2111Team MemberRelationshipSpecialty Start DateEnd Date Miguel Maurer MD [address] [place] [address] PCP - [facility]12/13/22 Miguel Maurer MD [address] [place] [address] PCP - [facility]08/16/2111Team MemberRelationshipSpecialty Start DateEnd Date Miguel Maurer MD [address] [place] [address] PCP - [facility]12/13/22 Miguel Maurer MD [address] [place] [address] PCP - [facility]08/16/2111Team MemberRelationshipSpecialty Start DateEnd Date Miguel Maurer MD [address] [place] [address] PCP - [facility]12/13/22 Miguel Maurer MD [address] [place] [address] PCP - [facility]08/16/2111Team MemberRelationshipSpecialty Start DateEnd Date Miguel Maurer MD [address] [place] [address] PCP - [facility]12/13/22 Miguel Maurer MD [address] [place] [address] [facility] - [facility]08/16/2111Team MemberRelationshipSpecialty Start DateEnd Date Miguel Maurer MD [address] [place] [address] PCP - [facility]12/13/22 Miguel Maurer MD [address] [place] [address] PCP - [facility]08/16/2111Team MemberRelationshipSpecialty Start DateEnd Date Miguel Maurer MD [address] [place] [address] PCP - [facility]12/13/22 Miguel Maurer MD [address] [place] [address] PCP - [facility]08/16/2111Team MemberRelationshipSpecialty Start DateEnd Date Miguel Maurer MD PCP - [facility]12/13/22 Miguel Maurer MD [address] [place] [address] PCP - [facility]08/16/2111 Team Status: Active Member Role/Relationship Status Dates Miguel Maurer MD Primary Care Provider Active Team Status: Active Member Role/Relationship Status Dates Miguel Maurer MD Primary Care Provider Active S tart: November 14, 2024 Asmita Wood ProviderActiveStart: November 14, 2024 Team Status: Inactive Member Role/Relationship Status Dates Miguel Maurer MD Primary Care Provider Active S tart: December 17, 2024 End: December 17, 2024[facility] Asmita Maurer ProviderActiveStart: December 17, 2024 End: December 17, 2024 Goals (unrecognized section and content) Goals may be documented in a n alternate section FOR RECORDS PERTAINING TO PATIENTS WHO ARE [...] BE BASED ON THE PRIMARY CLINICAL RECORDS. [facility] [employer] [facility]. provides no warranty or guarantee of the accuracy or completeness of information in this document.
== END 2024-12-25 13:22 | disposition home or self-care (01) ==
LOC: LAB 13:22
PROVIDERS: PCP Family Medicine; Visit Provider Family Medicine
DX: R73.03 Prediabetes (principal); R53.83 Other fatigue
CPT/HCPCS: 36415; 83036; 84403